=== PATIENT | male | born 1935 | race Caucasian/White ===

== ENCOUNTER 2019-10-11 08:15 | Outpatient (CLI) | payer MEDICARE, SELFPAY ==
[2019-10-11 08:36] LABS: Basophils Absolute Auto 0.1 K/mm3 (0.0-0.1); Basophils Percent Auto 0.7 % (0.2-1.2); Eosinophils Absolute Auto 0.6 K/mm3 (0-0.3); Eosinophils Percent Auto 5.5 % (0-4.4); Hematocrit 44.5 % (42.0-52.0); Hemoglobin 14.5 g/dL (14.0-18.0); Immature Granulocyte Absolute 0.04 K/mm3 (0.00-0.031); Immature Granulocyte Percent A 0.4 % (0-0.5); Lymphocytes Percent Auto 18.1 % (18.3-44.2); Mean Corpuscular HGB Conc 32.6 g/dl (32-36); Mean Corpuscular Hemoglobin 29.6 pg (26-34); Mean Corpuscular Volume 90.8 fl (80-100); Mean Platelet Volume 10.8 fl (7.4-10.4); Monocytes Absolute Auto 0.7 K/mm3 (0.1-0.6); Monocytes Percent Auto 6.8 % (2.6-8.5); Neutrophils Absolute Auto 6.8 K/mm3 (1.3-6.7); Neutrophils Percent Auto 68.5 % (45.5-73.1); Platelet Count Result 207 k/mm3 (150-375); Red Cell Distribution Width 13.5 % (11.5-14.5)
[2019-10-11 08:38] LABS: Blood Urea Nitrogen 26 mg/dL (8-26); Carbon Dioxide 22 mmol/L (22-30); Chloride 109 mmol/L (98-109); Estimated Glomerular Filt Rate 42; Glucose 150 mg/dL (70-105); Potassium 5.1 mmol/L (3.5-4.9); Sodium 139 mmol/L (138-146)
[2019-10-11 10:45] LABS: Alanine Aminotransferase 21 U/L (4-50); Albumin Level 3.9 g/dL (3.5-5.1); Alkaline Phosphatase 88 U/L (38-126); Aspartate Amino Transferase 27 U/L (17-59); Bilirubin,Total 0.3 mg/dL (0.2-1.3); Blood Urea Nitrogen 27 mg/dL (9-20); Calcium 9.9 mg/dL (8.4-10.2); Carbon Dioxide 19 mmol/L (22-30); Chloride 106 mmol/L (98-107); Estimated Glomerular Filt Rate 49; Glucose 147 mg/dL (75-110); Potassium 5.3 mmol/L (3.4-5.0); Sodium 138 mmol/L (137-145)
== END 2019-10-11 08:16 | disposition home or self-care (01) ==
PROVIDERS: PCP Internal Medicine Hematology & Oncology; Visit Provider Internal Medicine Hematology & Oncology
DX: C64.2 Malignant neoplasm of left kidney, except renal pelvis (principal)
CPT/HCPCS: 36415; 80048; 80053; 85025

== ENCOUNTER 2019-10-17 10:14 | Outpatient (CLI) | payer MEDICARE, SELFPAY ==
--- NOTE | ~2019-10-17 | MR_ITS ---
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 TECHNIQUE: Magnetic resonance imaging (MRI) of the cervical spine was performed without and with 15 m L MultiHance intravenous contrast. Sequences included sagittal and axial T2-weighted FSE, sagittal ST IR FSE, and sagittal and axial T1-weighted FSE. Postcontrast sequences included sagittal and axial T1 -weighted FS FSE. COMPARISON: Cervical spine MRI 05/16/2019, 02/14/2019, chest CT 09/26/2019 FINDINGS: Bone alignment is normal. There is bone marrow replacement involving C2 and C3 vertebral keya dies with expansion of C2 vertebral body with mild central canal stenosis. There is severely decrease d disc height at C2-C3 and mildly decreased disc height at C5-C6 and C6-C7. There is posterior decomp ression from the skull base to C3. There are lateral mass screws in C3, C4, and C5. The spinal cord s ignal intensity is normal. The following disc levels are specifically discussed: C2-C3: The disc is bulging. There is at least mild bilateral neural foraminal stenosis. There is mild central canal stenosis. C3-C4: The disc is bulging. There is mild bilateral uncovertebral joint osteoarthritis. There is mild bilateral facet joint hypertrophy. There is mild bilateral neural foraminal stenosis. There is mild central canal stenosis. C4-C5: The disc is bulging. There is moderate bilateral uncovertebral joint osteoarthritis. There is moderate bilateral facet joint hypertrophy. There is moderate bilateral neural foraminal stenosis. Th ere is mild central canal stenosis. C5-C6: The disc is bulging. There is severe right and moderate left uncovertebral joint osteoarthriti s. There is mild bilateral facet joint hypertrophy. There is moderate bilateral neural foraminal sten osis. There is mild central canal stenosis. C6-C7: The disc is bulging. There is severe bilateral uncovertebral joint osteoarthritis. There is mi ld bilateral facet joint osteoarthritis. There is moderate right and mild left neural foraminal steno sis. There is mild central canal stenosis. C7-T1: The disc is bulging. There is mild bilateral uncovertebral joint osteoarthritis. There is mild right and moderate left facet joint osteoarthritis. There is mild bilateral neural foraminal stenosi s. There is mild central canal stenosis. IMPRESSION: 1. Bone marrow replacement involving C2 and C3 vertebral bodies, stable from 02/14/2019, consistent wi th metastatic disease. 2. Moderate cervical spondylosis. Reviewed, dictated and finalized at location A. DENT RESPONSE CONSULTANT IMPRESSION: 1. Bone marrow replacement involving C2 and C3 vertebral bodies, stable from 07/2019, consistent with metastatic disease. 2. Moderate cervical spondylosis.
[2019-10-17 11:29] LABS: Blood Urea Nitrogen 22 mg/dL (8-26); Estimated Glomerular Filt Rate 49
== END 2019-10-17 10:15 | disposition home or self-care (01) ==
PROVIDERS: Visit Provider Internal Medicine Hematology & Oncology
DX: C64.2 Malignant neoplasm of left kidney, except renal pelvis (principal); C79.51 Secondary malignant neoplasm of bone; M47.812 Spondylosis without myelopathy or radiculopathy, cervical region
CPT/HCPCS: 72156; A9577

== ENCOUNTER 2019-11-23 08:55 | Outpatient (CLI) | payer MEDICARE, SELFPAY ==
--- NOTE | ~2019-11-23 | PE_ITS ---
EXAMINATION: PET skull to mid thigh DATE: 11/23/2019 12:53 INDICATION: Malignant neoplasm of the kidney, abnormal bilateral hilar lymph nodes on recent CT and s uspected cervical spine metastatic disease on recent MR. TECHNIQUE: Blood glucose level was 78 mg/dL. 9.797 mCi of 18-fluorodeoxyglucose (18-FDG) was administ ered i.v. Low dose computed tomography (CT) images were acquired from the base of the brain to the pr oximal thighs for attenuation correction and anatomic localization. Positron emission tomography (PET ) images were acquired in the same distribution beginning 62 minutes after injection. COMPARISON: 09/26/2019, 10/17/2019 FINDINGS: Head/neck: FDG uptake in the glottis without suspicious CT correlate is likely physiologic. There are no pathologically enlarged cervical lymph nodes. Chest: There is a 1.7 x 1.1 cm right supraclavicular lymph node with mild FDG uptake an SUV max of 2. 3. There is an approximately 2.3 x 1.5 cm left hilar lymph node with abnormal FDG uptake and SUV max of 4.1. The right hilar lymph node described on recent CT scan demonstrates mild FDG uptake but is be low size threshold for accurate uptake assessment. The heart size is normal. There is mild dependent atelectasis. Calcified mediastinal lymph nodes are consistent with old granulomatous disease. There i s no pneumothorax. Abdomen/pelvis/proximal thighs: Physiologic FDG activity is present in the bowel and urinary tract. N o abnormal FDG uptake is identified. The left kidney is surgically absent. Stones are present in the nondistended gallbladder. The liver, spleen, pancreas, and right adrenal gland are normal. The right kidney is unremarkable. No pathologically enlarged abdominal or pelvic lymph nodes are identified. Th ere is no free intraperitoneal gas or evidence of bowel obstruction. There are bilateral fat-containi ng inguinal hernias. Fat extends into the hemiscrotum on the right. Musculoskeletal: Again noted are lytic lesions involving the C2 and C3 vertebral bodies with associat ed abnormal FDG uptake and SUV max of 4.1. There are changes of occipitocervical fusion. IMPRESSION: 1. Left hilar and right supraclavicular lymphadenopathy with mild FDG uptake, consistent with metasta tic disease. Previously described right hilar lymph node demonstrates mild uptake but is likely below size threshold for accurate FDG uptake assessment. 2. Lytic lesions of the C2 and C3 vertebral bodies, consistent with metastatic disease. Reviewed, dictated and finalized at location A. IMPRESSION: 1. Left hilar and right supraclavicular lymphadenopathy with mild FDG uptake, c onsistent with metastatic disease. Previously described right hilar lymph node demonstrates mild uptake but is likely below size threshold for accurate FDG up take assessment. 2. Lytic lesions of the C2 and C3 vertebral bodies, consistent with metastatic disease.
[2019-11-23 09:35] LABS: Glucose Point of Care 78 (65-105)
== END 2019-11-23 08:56 | disposition home or self-care (01) ==
LOC: ANHIMG 09:01
PROVIDERS: Visit Provider Radiology Radiation Oncology
DX: C64.2 Malignant neoplasm of left kidney, except renal pelvis (principal); R59.0 Localized enlarged lymph nodes; M89.9 Disorder of bone, unspecified
CPT/HCPCS: 78815; A9552

== ENCOUNTER 2019-12-14 11:19 | Outpatient (CLI) | payer MEDICARE, SELFPAY ==
[2019-12-14 11:35] LABS: Basophils Absolute Auto 0.1 K/mm3 (0.0-0.1); Basophils Percent Auto 0.9 % (0.2-1.2); Eosinophils Absolute Auto 0.5 K/mm3 (0-0.3); Eosinophils Percent Auto 6.5 % (0-4.4); Hematocrit 42.7 % (42.0-52.0); Hemoglobin 13.4 g/dL (14.0-18.0); Immature Granulocyte Absolute 0.06 K/mm3 (0.00-0.031); Immature Granulocyte Percent A 0.7 % (0-0.5); Lymphocytes Absolute Auto 1.68 K/mm3 (0.9-3.2); Lymphocytes Percent Auto 20.7 % (18.3-44.2); Mean Corpuscular HGB Conc 31.4 g/dl (32-36); Mean Corpuscular Hemoglobin 29.9 pg (26-34); Mean Corpuscular Volume 95.3 fl (80-100); Mean Platelet Volume 10.8 fl (7.4-10.4); Monocytes Absolute Auto 0.7 K/mm3 (0.1-0.6); Monocytes Percent Auto 8.3 % (2.6-8.5); Neutrophils Absolute Auto 5.1 K/mm3 (1.3-6.7); Neutrophils Percent Auto 62.9 % (45.5-73.1); Platelet Count Result 200 k/mm3 (150-375); Red Blood Count 4.48 M/mm3 (4.6-6.20); Red Cell Distribution Width 13.3 % (11.5-14.5); White Blood Count 8.1 K/mm3 (4.5-10.0)
[2019-12-14 11:38] LABS: Blood Urea Nitrogen 40 mg/dL (8-26); Carbon Dioxide 20 mmol/L (22-30); Chloride 111 mmol/L (98-109); Estimated Glomerular Filt Rate 42; Glucose 120 mg/dL (70-105); Potassium 5.4 mmol/L (3.5-4.9); Sodium 139 mmol/L (138-146)
[2019-12-14 12:19] LABS: Alanine Aminotransferase 19 U/L (4-50); Albumin Level 3.9 g/dL (3.5-5.1); Alkaline Phosphatase 80 U/L (38-126); Aspartate Amino Transferase 26 U/L (17-59); Bilirubin,Total 0.3 mg/dL (0.2-1.3); Blood Urea Nitrogen 42 mg/dL (9-20); Calcium 9.7 mg/dL (8.4-10.2); Carbon Dioxide 20 mmol/L (22-30); Chloride 109 mmol/L (98-107); Estimated Glomerular Filt Rate 42; Glucose 112 mg/dL (75-110); Potassium 5.7 mmol/L (3.4-5.0); Sodium 137 mmol/L (137-145)
== END 2019-12-14 11:20 | disposition home or self-care (01) ==
LOC: ANHLAB 11:21
PROVIDERS: Visit Provider Internal Medicine Hematology & Oncology
DX: C64.2 Malignant neoplasm of left kidney, except renal pelvis (principal)
CPT/HCPCS: 36415; 80048; 80053; 85025

== ENCOUNTER 2020-02-05 10:08 | Outpatient (CLI) | payer MEDICARE, SELFPAY ==
--- NOTE | ~2020-02-05 | MR_ITS ---
EXAMINATION: MR cervical spine wo con DATE: 02/05/2020 12:23 INDICATION: Malignant neoplasm of the left kidney excluding renal pelvis. Neck pain. TECHNIQUE: Magnetic resonance imaging (MRI) of the cervical spine was performed without intravenous c ontrast due to decreased kidney function. Sequences included sagittal T2-weighted FSE, sagittal STIR FSE, sagittal T1-weighted FSE, axial MERGE, and axial T2-weighted FSE. COMPARISON: Cervical spine MRI 10/17/2019, 02/14/19 FINDINGS: Bone alignment is normal. There is bone marrow replacement involving C2 and C3 vertebral keya dies with expansion of C2 vertebral body with mild central canal stenosis. There is severely decrease d disc height at C2-C3 and mildly decreased disc height at C5-C6 and C6-C7. There is posterior decomp ression from the skull base to C3. There are lateral mass screws in C3, C4, and C5. The spinal cord s ignal intensity is normal. The following disc levels are specifically discussed: C2-C3: The disc is bulging. There is at least mild bilateral neural foraminal stenosis. There is mild central canal stenosis. C3-C4: The disc is bulging. There is mild bilateral uncovertebral joint osteoarthritis. There is mild bilateral facet joint hypertrophy. There is mild bilateral neural foraminal stenosis. There is mild central canal stenosis. C4-C5: The disc is bulging. There is moderate bilateral uncovertebral joint osteoarthritis. There is moderate bilateral facet joint hypertrophy. There is moderate bilateral neural foraminal stenosis. Th ere is mild central canal stenosis. C5-C6: The disc is bulging. There is severe right and moderate left uncovertebral joint osteoarthritis. There is mild bilateral facet joint hypertrophy. There is moderate right and mild lef t neural foraminal stenosis. There is mild central canal stenosis. C6-C7: The disc is bulging. There is severe bilateral uncovertebral joint osteoarthritis. There is mi ld bilateral facet joint osteoarthritis. There is moderate right and mild left neural foraminal steno sis. There is mild central canal stenosis. C7-T1: The disc is bulging. There is mild bilateral uncovertebral joint osteoarthritis. There is mild right and moderate left facet joint osteoarthritis. There is mild bilateral neural foraminal stenosi s. There is mild central canal stenosis. IMPRESSION: 1. Bone marrow replacement involving C2 and C3 vertebral bodies, stable from 02/14/2019, consistent wi th metastatic disease. 2. Moderate cervical spondylosis. Reviewed, dictated and finalized at location A. IMPRESSION: 1. Bone marrow replacement involving C2 and C3 vertebral bodies, stable from 07/2019, consistent with metastatic disease. 2. Moderate cervical spondylosis.
--- NOTE | ~2020-02-05 | CT_ITS ---
EXAMINATION: CT chest abdomen pelvis w con EXAM DATE: 02/05/2020 12:31 INDICATION: Malignant neoplasm left kidney. TECHNIQUE: Spiral CT of the chest, abdomen and pelvis was performed following intravenous injection o f 100 mL Omnipaque 350. Axial, coronal and sagittal images were reviewed. Coronal maximum intensity pixel images of chest reviewed. The dose-length product (DLP) for this examination was 1343.64 mGy- cm. The exposure was tailored according to patient size (auto mA exposure control), and iterative re construction (ASIR) was used as additional dose reduction technique. Comparison is made to prior exam ination from 09/26/2019. FINDINGS: CHEST: Interval improvement in previously seen scattered regions of right basilar tree-in-bud airspa ce disease, probably postinfectious residua. Linear left basilar atelectasis. There are no pleural o r pericardial effusions. Tracheobronchial tree is patent. Several enhancing left hilar lymph node s, conglomerate of both measuring 1.8 x 2.6 cm, appearance disease not significantly changed. Smaller but heterogeneously enhancing mediastinal, right hilar lymph nodes. There is no pneumothorax. Hear t normal in size. No evidence of coronary arterial calcification. ABDOMEN PELVIS: There is an 8 mm nodule in the right adrenal gland, indeterminate. The liver, spleen , and pancreas are unremarkable. There are gallstones within an otherwise unremarkable gallbladder. No evidence of obstructive biliary disease. Status post left-sided nephrectomy. There is mild prost atomegaly. The bladder is unremarkable. There is no retroperitoneal or pelvic lymphadenopathy. Th ere is mild scattered arteriosclerotic disease. Small to moderate right, small left inguinal fat-cont aining hernias. Small supraumbilical fat-containing hernias. The appendix is normal. There is small sliding gastroesophageal hiatal hernia. There is expected am ount of colonic stool. There is rather extensive colonic diverticulosis. There is no adjacent inflam matory change to suggest diverticulitis. There are no osteoblastic or osteolytic lesions identified. Patient has diffuse idiopathic skeletal hyperostosis (DISH). IMPRESSION: 1. Stable mediastinal, bilateral hilar heterogeneous metastatic lymphadenopathy. 2. Improvement in right basilar tree-in-bud opacities, post infectious residua. 3. Small right adrenal nodule, indeterminate. 4. Colonic diverticulosis. 5. Prostatomegaly. 6. Fat-containing hernias. Reviewed, dictated and finalized at location A. IMPRESSION: 1. Stable mediastinal, bilateral hilar heterogeneous metastatic lymphadenopath y. 2. Improvement in right basilar tree-in-bud opacities, post infectious residua . 3. Small right adrenal nodule, indeterminate. 4. Colonic diverticulosis. 5. Prostatomegaly. 6. Fat-containing hernias.
[2020-02-05 11:18] LABS: Estimated Glomerular Filt Rate 36
== END 2020-02-05 10:09 | disposition home or self-care (01) ==
PROVIDERS: Visit Provider Internal Medicine Hematology & Oncology
DX: C64.2 Malignant neoplasm of left kidney, except renal pelvis (principal); M47.892 Other spondylosis, cervical region; K57.30 Diverticulosis of large intestine without perforation or abscess without bleeding; N40.0 Benign prostatic hyperplasia without lower urinary tract symptoms; K44.9 Diaphragmatic hernia without obstruction or gangrene
CPT/HCPCS: 36415; 71260; 72141; 74177; Q9967

== ENCOUNTER 2020-02-08 07:39 | Emergency (ER) | payer MEDICARE, SELFPAY ==
--- NOTE | ~2020-02-08 | CT_ITS ---
EXAMINATION: CT brain wo con DATE: 02/08/2020 08:04 INDICATION: Head injury. TECHNIQUE: Computed tomography (CT) of the head was performed without intravenous contrast. The mA wa s adjusted according to patient size. Iterative reconstruction technique was employed. The dose-lengt h product was 605.33 mGy-cm. COMPARISON: PET CT 11/23/2019 FINDINGS: There is chronic encephalomalacia in right parietal occipital region with dystrophic calcif ications. There is a small focus of cystic encephalomalacia in the left parietal lobe deep white willis er. There is no intracranial hemorrhage, acute infarction, or abnormal intracranial mass lesion. The ventricles are normal in size. There are chronic dystrophic calcifications of the anterior falx. Ther e is mild mucosal thickening in the ethmoid sinuses. The mastoid air cells are normal. The orbits are normal. There are changes of fusion procedure involving the skull base and posterior cervical spine. IMPRESSION: 1. 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 Reviewed, dictated and finalized at location A. IMPRESSION: 1. Chronic encephalomalacia in right parietal-occipital region and left parieta l lobe.
--- NOTE | ~2020-02-08 | CT_ITS ---
EXAMINATION: CT cervical spine wo con DATE: 02/08/2020 08:04 INDICATION: Head injury. TECHNIQUE: Computed tomography (CT) of the cervical spine was performed without intravenous contrast. Automated exposure control and iterative reconstruction technique were employed. The dose-length pro duct was 406.35 mGy-cm. COMPARISON: Cervical spine MRI 02/05/2020 FINDINGS: Bone alignment is normal. There is an aggressive lytic lesion involving C2 and C3 vertebral bodies and posterior elements with expansion of C2 body with mild central canal stenosis. There are changes of posterior fusion procedure from the skull base to C5 with pedicle screws in C3-C5. There i s a strut graft between the skull base and C4 spinous process. There is moderately decreased disc hei ght at C5-C6 and C6-C7. The following disc levels are specifically discussed: C2-C3: There is mild left facet joint hypertrophy. There is no osseous neural foraminal stenosis. The re is no central canal stenosis. C3-C4: There is mild bilateral uncovertebral joint osteoarthritis. There is mild left facet joint hyp ertrophy. There is mild left neural foraminal stenosis. There is mild central canal stenosis. C4-C5: There is mild right and severe left uncovertebral joint osteoarthritis. There is mild right an d moderate left facet joint hypertrophy. There is mild right and moderate left neural foraminal steno sis. There is mild central canal stenosis. C5-C6: There is severe bilateral uncovertebral joint osteoarthritis. There is mild bilateral facet courtney int hypertrophy. There is moderate bilateral neural foraminal stenosis. There is mild central canal s tenosis. C6-C7: There is severe bilateral uncovertebral joint osteoarthritis. There is mild bilateral facet courtney int osteoarthritis. There is moderate right and mild left neural foraminal stenosis. There is mild ce ntral canal stenosis. C7-T1: There is severe right and mild left uncovertebral joint osteoarthritis. There is severe bilate ral facet joint osteoarthritis. There is mild bilateral neural foraminal stenosis. There is mild cent ral canal stenosis. IMPRESSION: 1. No acute fracture. 2. Aggressive lytic lesion involving C2 and C3, consistent with metastatic disease. 3. Moderate cervical spondylosis. 4. Posterior fusion procedure from the skull base to C5. Reviewed, dictated and finalized at location A. IMPRESSION: 1. No acute fracture. 2. Aggressive lytic lesion involving C2 and C3, consistent with metastatic dise ase. 3. Moderate cervical spondylosis. 4. Posterior fusion procedure from the skull base to C5.
--- NOTE | 2020-02-08 07:48 | ECG_ITS ---
Measurements Intervals Plush Rate: 70 P: 47 DE: 217 QRS: 29 QRSD: 96 T: 26 QT: 354 QTc: 384 Interpretive Statements SINUS RHYTHM WITH FIRST DEGREE AV BLOCK MINIMAL Q WAVES- INFERIOR LEADS NONSPEFIC ST ELEVATION IN DIFFUSE LEADS- PROBABLY EARLY REPOLARIZATION ABNORMAL ECG Electronically Signed On 02-08-2020 8:37:47 CDT by Keon Soni D.O.
--- NOTE | 2020-02-08 07:52 | ED.FALL ---
HPI - Fall General Chief Complaint: Fall Stated Complaint: Fall Time Seen by Provider: 02/08/20 07:48 History of Present Illness HPI Narrative: Unwitnessed fall this morning. Does not remember falll or circumstances around the fall. Unsure of down toime, does not believe it was very long. He c/o mild pain in the neck and left hip. Noted to have abrasion/contusion to scalp. He is on chemotherapy for a neck mass. Denies weakness, numbness, nausea, diarrhea, SOB, chest pain, heart palpitations. Related Data Home Medications Medication Instructions Recorded Confirmed allopurinol 100 mg PO DAILY 11/10/19 11/10/19 ascorbic acid (vitamin C) [C-1000] 1 g PO DAILY 11/10/19 11/10/19 ascorbic acid (vitamin C) [Vitamin 1 g PO DAILY 11/10/19 11/10/19 C] calcium carbonate-vitamin D3 1 tablet PO DAILY 11/10/19 11/10/19 [Caltrate 600 plus D] chlorthalidone 25 mg PO QMWF 11/10/19 11/10/19 cyanocobalamin (vitamin B-12) 1,000 mcg PO DAILY 11/10/19 11/10/19 denosumab [Xgeva] 120 mg SUBCUT ONCE 11/10/19 11/10/19 kiana (Zingiber officinalis) 250 mg PO DAILY 11/10/19 11/10/19 [kiana extract] kiana root-pyridoxine HCl(B6) cap PO 11/10/19 glimepiride 1 mg PO DAILY 11/10/19 02/08/20 lenvatinib 20 mg PO DAILY 11/10/19 11/10/19 lenvatinib [Lenvima] 10 mg PO DAILY 11/10/19 11/10/19 lisinopril 40 mg PO DAILY 11/10/19 02/08/20 magnesium 30 mg PO DAILY 11/10/19 11/10/19 zywlbqoj-avr-jleld-vit K-lycop 1 tablet PO DAILY 11/10/19 11/10/19 [Men's 50 Plus Multivitamin] naproxen sodium [Aleve] 220 mg PO Q12H PRN 11/10/19 11/10/19 oxycodone 5 mg PO Q4H PRN 11/10/19 11/10/19 pantoprazole 40 mg PO QAM 11/10/19 11/10/19 sildenafil 50 mg PO DAILY 11/10/19 11/10/19 turmeric root extract 500 mg PO DAILY 11/10/19 11/10/19 vitamin E 400 unit PO DAILY 11/10/19 11/10/19 Allergies Allergy/AdvReac Type Severity Reaction Status Date / Time Penicillins Allergy Mild Rash Verified 02/08/20 08:14 Review of Systems Review of Systems: All systems reviewed & are unremarkable except as noted in HPI and below Eyes: Eyes: Denies change in vision PMFSH Social History Social History Gender identity (if verbalized by the patient): Male Exam Const: General: no acute distress and alert Nutritional Appearance: well nourished Orientation/consciousness: patient oriented x3 HENMT: Other: swelling and abrasion of posterior scalp Eyes: Conjunctivae: conjunctivae normal Pupils: Equal, round and reactive pupils present EOM: EOMs intact bilaterally Neck: Neck: normal visual inspection Chest: Chest palpation & inspection: normal inspection of the chest Resp: Effort & Inspection: normal respiratory effort Auscultation: clear to auscultation bilaterally Cardio: Rate: regular rate Rhythm: regular rhythm Back/Spine/Pelvis: Other: mid line cervical tenderness Skin: General skin exam: normal color Neuro: General: patient oriented x3, moves all extremities and CN's II-XI intact bilaterally Cranial nerves: Yes Nystagmus not present Speech: normal speech Extrem: Other: No pain with ROM in left hip Course Vital Signs Vital signs: Vital Signs Temperature 36.8 C 02/08/20 07:57 Pulse Rate 79 02/08/20 07:57 Respiratory Rate 18 02/08/20 07:57 Blood Pressure 200/83 H 02/08/20 07:57 Pulse Oximetry 98 02/08/20 07:57 Temperature 36.8 C 02/08/20 07:57 Pulse Rate 98 02/08/20 11:46 Respiratory Rate 20 02/08/20 11:46 Blood Pressure 161/66 H 02/08/20 11:46 Pulse Oximetry 98 02/08/20 11:46 MDM - Fall MDM Narrative Medical decision making narrative: On initial assesment he did not recal the fall and seemed to be somewhat slow. I was planning to admit for suspected syncope. On reassessment he now remembers the fall. He was walking without his coleman and missed the last step. His confirms the story and says that he seems to have returned to baseline. I still offered admission
[2020-02-08 07:57] VITALS: BP 200/83; PULSE 79; RESP 18; TEMP 36.8; O2SAT 98
[2020-02-08] MEDS: SODIUM CHLORIDE 0.9% IV 500 ML 999 ML IV CONT (08:12)
--- NOTE | 2020-02-08 08:18 | PC.NURSE ---
Informed pt that we are needing a urine sample.
[2020-02-08 08:42] LABS: Basophils Absolute Auto 0.1 K/mm3 (0.0-0.1); Basophils Percent Auto 0.7 % (0.2-1.2); Eosinophils Absolute Auto 0.5 K/mm3 (0-0.3); Eosinophils Percent Auto 4.7 % (0-4.4); Hematocrit 40.7 % (42.0-52.0); Immature Granulocyte Absolute 0.06 K/mm3 (0.00-0.031); Immature Granulocyte Percent A 0.6 % (0-0.5); Lymphocytes Absolute Auto 0.91 K/mm3 (0.9-3.2); Lymphocytes Percent Auto 8.7 % (18.3-44.2); Mean Corpuscular HGB Conc 31.9 g/dl (32-36); Mean Corpuscular Hemoglobin 30.4 pg (26-34); Mean Corpuscular Volume 95.1 fl (80-100); Mean Platelet Volume 10.7 fl (7.4-10.4); Monocytes Absolute Auto 0.7 K/mm3 (0.1-0.6); Neutrophils Absolute Auto 8.2 K/mm3 (1.3-6.7); Neutrophils Percent Auto 78.3 % (45.5-73.1); Platelet Count Result 186 k/mm3 (150-375); Red Blood Count 4.28 M/mm3 (4.6-6.20); Red Cell Distribution Width 13.5 % (11.5-14.5); White Blood Count 10.5 K/mm3 (4.5-10.0)
[2020-02-08 08:59] LABS: Alanine Aminotransferase 16 U/L (4-50); Alkaline Phosphatase 72 U/L (38-126); Aspartate Amino Transferase 25 U/L (17-59); Bilirubin,Total < 0.1 mg/dL (0.2-1.3); Blood Urea Nitrogen 37 mg/dL (9-20); Calcium 9.6 mg/dL (8.4-10.2); Carbon Dioxide 26 mmol/L (22-30); Chloride 105 mmol/L (98-107); Estimated CRCL calculation 25 ml/min; Estimated Glomerular Filt Rate 34; Glucose 174 mg/dL (75-110); Potassium 5.7 mmol/L (3.4-5.0); Sodium 137 mmol/L (137-145)
[2020-02-08 09:05] LABS: INR 0.9; Prothrombin Time 12.1 Seconds (11.1-14.7)
[2020-02-08 09:06] VITALS: BP 195/78; PULSE 68
[2020-02-08 09:07] LABS: Partial Thromboplastin Time 28.2 SECONDS (22.3-36.8)
[2020-02-08 09:13] VITALS: BP 197/98; BP 204/95; PULSE 79; PULSE 92
[2020-02-08 09:46] LABS: Add Urine Microscopic? YES; Appearance Urine Clear (Clear); Bilirubin Urine Negative (Negative); Blood Urine Negative (Negative); Color Urine Yellow (Yellow); Glucose Urine UA Negative (Negative); Hyaline Casts Urine 15-19 /lpf; Ketones Urine Negative (Negative); Leukocyte Esterase Ur Negative LEU/UL (Negative); Mucus Urine Rare /lpf; Nitrate Urine Negative (Negative); Protein Urine 2+ mg/dL (Negative); RBC Urine 0-2 /hpf (0-2); Specific Grav Ur 1.019 (1.001-1.035); Urobilinogen Urine Negative mg/dL (<2.0)
[2020-02-08 09:55] VITALS: BP 198/82; PULSE 85; RESP 10; O2SAT 98
[2020-02-08] MEDS: hydrALAZINE HCL 20 MG/ML VIAL 10 MG IV PUSH (11:04)
[2020-02-08] MEDS: SODIUM CHLORIDE 0.9% IV 1,000 ML 999 ML IV CONT (11:04)
[2020-02-08 11:46] VITALS: BP 161/66; PULSE 98; RESP 20; O2SAT 98
== END 2020-02-08 13:21 | disposition home or self-care (01) ==
LOC: ANHED 11:13 → ANH3MEDSUR 12:28
PROVIDERS: Emergency Provider Emergency Medicine; PCP Internal Medicine
DX: S00.03XA Contusion of scalp, initial encounter (principal); R22.1 Localized swelling, mass and lump, neck; Z79.899 Other long term (current) drug therapy; I44.0 Atrioventricular block, first degree; R94.31 Abnormal electrocardiogram [ECG] [EKG]; W10.9XXA Fall (on) (from) unspecified stairs and steps, initial encounter
CPT/HCPCS: 36415; 70450; 72125; 80053; 81001; 85025; 85610; 85730; 93005; 96361; 96374; 99284; J0360; J7030; J7040

== ENCOUNTER 2020-02-14 12:39 | Outpatient (CLI) | payer MEDICARE, SELFPAY ==
[2020-02-14 13:01] LABS: Basophils Absolute Auto 0.1 K/mm3 (0.0-0.1); Basophils Percent Auto 0.8 % (0.2-1.2); Eosinophils Absolute Auto 0.8 K/mm3 (0-0.3); Eosinophils Percent Auto 6.8 % (0-4.4); Hematocrit 42.1 % (42.0-52.0); Hemoglobin 13.2 g/dL (14.0-18.0); Immature Granulocyte Absolute 0.08 K/mm3 (0.00-0.031); Immature Granulocyte Percent A 0.7 % (0-0.5); Lymphocytes Absolute Auto 2.07 K/mm3 (0.9-3.2); Mean Corpuscular HGB Conc 31.4 g/dl (32-36); Mean Corpuscular Hemoglobin 29.7 pg (26-34); Mean Corpuscular Volume 94.6 fl (80-100); Mean Platelet Volume 10.6 fl (7.4-10.4); Monocytes Absolute Auto 0.9 K/mm3 (0.1-0.6); Monocytes Percent Auto 7.4 % (2.6-8.5); Neutrophils Absolute Auto 8.2 K/mm3 (1.3-6.7); Neutrophils Percent Auto 67.3 % (45.5-73.1); Platelet Count Result 229 k/mm3 (150-375); Red Blood Count 4.45 M/mm3 (4.6-6.20); Red Cell Distribution Width 13.3 % (11.5-14.5); White Blood Count 12.2 K/mm3 (4.5-10.0)
[2020-02-14 13:05] LABS: Blood Urea Nitrogen 28 mg/dL (8-26); Carbon Dioxide 21 mmol/L (22-30); Chloride 109 mmol/L (98-109); Estimated Glomerular Filt Rate 49; Glucose 120 mg/dL (70-105); Potassium 4.9 mmol/L (3.5-4.9); Sodium 139 mmol/L (138-146)
[2020-02-14 16:54] LABS: Alanine Aminotransferase 15 U/L (4-50); Albumin Level 3.8 g/dL (3.5-5.1); Alkaline Phosphatase 75 U/L (38-126); Aspartate Amino Transferase 22 U/L (17-59); Bilirubin,Total 0.3 mg/dL (0.2-1.3); Blood Urea Nitrogen 28 mg/dL (9-20); Calcium 9.4 mg/dL (8.4-10.2); Carbon Dioxide 22 mmol/L (22-30); Chloride 107 mmol/L (98-107); Estimated Glomerular Filt Rate 53; Glucose 117 mg/dL (75-110); Potassium 5.1 mmol/L (3.4-5.0); Sodium 138 mmol/L (137-145)
== END 2020-02-14 12:40 | disposition home or self-care (01) ==
LOC: ANHLAB 12:41
PROVIDERS: Visit Provider Internal Medicine Hematology & Oncology
DX: C64.2 Malignant neoplasm of left kidney, except renal pelvis (principal)
CPT/HCPCS: 36415; 80048; 80053; 85025

== ENCOUNTER 2020-04-10 15:35 | Outpatient (CLI) | payer MEDICARE, SELFPAY ==
[2020-04-10 15:55] LABS: Basophils Absolute Auto 0.1 K/mm3 (0.0-0.1); Basophils Percent Auto 0.9 % (0.2-1.2); Eosinophils Absolute Auto 0.6 K/mm3 (0-0.3); Eosinophils Percent Auto 7.1 % (0-4.4); Hematocrit 42.2 % (42.0-52.0); Hemoglobin 13.3 g/dL (14.0-18.0); Immature Granulocyte Absolute 0.04 K/mm3 (0.00-0.031); Immature Granulocyte Percent A 0.4 % (0-0.5); Lymphocytes Absolute Auto 1.95 K/mm3 (0.9-3.2); Lymphocytes Percent Auto 21.6 % (18.3-44.2); Mean Corpuscular HGB Conc 31.5 g/dl (32-36); Mean Corpuscular Hemoglobin 29.4 pg (26-34); Mean Corpuscular Volume 93.2 fl (80-100); Mean Platelet Volume 10.4 fl (7.4-10.4); Monocytes Absolute Auto 0.7 K/mm3 (0.1-0.6); Monocytes Percent Auto 7.2 % (2.6-8.5); Neutrophils Absolute Auto 5.7 K/mm3 (1.3-6.7); Neutrophils Percent Auto 62.8 % (45.5-73.1); Platelet Count Result 206 k/mm3 (150-375); Red Blood Count 4.53 M/mm3 (4.6-6.20); Red Cell Distribution Width 13.5 % (11.5-14.5)
[2020-04-10 15:59] LABS: Blood Urea Nitrogen 29 mg/dL (8-26); Carbon Dioxide 25 mmol/L (22-30); Chloride 104 mmol/L (98-109); Estimated Glomerular Filt Rate 45; Glucose 149 mg/dL (70-105); Potassium 5.2 mmol/L (3.5-4.9); Sodium 139 mmol/L (138-146)
[2020-04-10 16:48] LABS: Alanine Aminotransferase 19 U/L (4-50); Alkaline Phosphatase 73 U/L (38-126); Anion Gap 15.5 mmol/L (7-16); Aspartate Amino Transferase 25 U/L (17-59); Bilirubin,Total 0.3 mg/dL (0.2-1.3); Blood Urea Nitrogen 30 mg/dL (9-20); Calcium 9.7 mg/dL (8.4-10.2); Carbon Dioxide 23 mmol/L (22-30); Chloride 104 mmol/L (98-107); Estimated Glomerular Filt Rate 49; Glucose 145 mg/dL (75-110); Potassium 5.5 mmol/L (3.4-5.0); Sodium 137 mmol/L (137-145)
== END 2020-04-10 15:36 | disposition home or self-care (01) ==
LOC: ANHLAB 15:37
PROVIDERS: Visit Provider Internal Medicine Hematology & Oncology
DX: C64.2 Malignant neoplasm of left kidney, except renal pelvis (principal)
CPT/HCPCS: 36415; 80048; 80053; 85025

== ENCOUNTER 2020-06-11 09:51 | Outpatient (CLI) | payer MEDICARE, SELFPAY ==
--- NOTE | ~2020-06-11 | MR_ITS ---
EXAMINATION: MR cervical spine wo con EXAM DATE: 06/11/2020 11:29 INDICATION: Malignancy. TECHNIQUE: Multi-sequential, multiplanar MR images of the cervical spine were obtained without contra st. Axial T2, axial T2 MERGE sequence. Sagittal T1, T2, T2 fat saturation images also obtained. Com parison is made to prior examination from 02/05/2020. FINDINGS: Again there is extensive marrow replacement process consistent with malignancy involving m ost of the C2 and C3 vertebral bodies, slight progression in error replacement compared to that time. Contours of the bones are bulging suggesting some extraosseous component. No evidence of odontoid fr acture. Surgical changes at the occiput, probably suboccipital craniectomy. Screws within posterior e lements C3-5. There is mild central canal stenosis at the C6-7 level from mild disc bulge. The cervical spinal canal otherwise patent. Overall moderate cervical spondylosis was detailed on natali or study and is unchanged. IMPRESSION: Bone marrow replacement C2 and C3, slight progression compared to prior study. Cervical spinal canal remains widely patent in this location with normal cord signal. Spondylosis unchanged. Reviewed, dictated and finalized at location B.
--- NOTE | ~2020-06-11 | CT_ITS ---
EXAMINATION: CT chest w con DATE: 06/11/2020 11:46 INDICATION: Malignant neoplasm of the left kidney TECHNIQUE: Transaxial computed tomographic images of the chest were obtained after the administration of 75 cc of Omnipaque 350 intravenous contrast. The dose-length product (DLP) was 526.43 mGy-cm. Ite rative reconstruction was used. COMPARISON: 02/05/2020 FINDINGS: There is mild emphysema. Tree-in-bud nodules in the right lower lobe are not significantly changed, likely infectious or inflammatory. There is no pleural effusion or pneumothorax. A 1.9 x 1.1 cm right subpectoral lymph node just below the clavicle is stable (image 16). Bilateral hilar lympha denopathy is stable to slightly decreased. The heart size is normal. There is mild bilateral gynecoma stia. Changes of left nephrectomy are noted. Stones are present in the nondistended gallbladder. Ther e are bridging osteophytes at multiple levels in the spine, consistent with diffuse idiopathic skelet al hyperostosis (DISH). IMPRESSION: 1. Stable to slightly decreased bilateral hilar lymphadenopathy and right subpectoral lymphadenopathy , consistent with metastatic disease. Reviewed, dictated and finalized at location A. IMPRESSION: 1. Stable to slightly decreased bilateral hilar lymphadenopathy and right subpe ctoral lymphadenopathy, consistent with metastatic disease.
[2020-06-11 11:27] LABS: Estimated Glomerular Filt Rate 42
== END 2020-06-11 09:52 | disposition home or self-care (01) ==
PROVIDERS: Visit Provider Internal Medicine Hematology & Oncology
DX: C64.2 Malignant neoplasm of left kidney, except renal pelvis (principal); M47.892 Other spondylosis, cervical region
CPT/HCPCS: 71260; 72141; Q9967

== ENCOUNTER 2020-06-18 12:47 | Outpatient (CLI) | payer MEDICARE, SELFPAY ==
[2020-06-18 13:12] LABS: Basophils Absolute Auto 0.1 K/mm3 (0.0-0.1); Basophils Percent Auto 0.6 % (0.2-1.2); Eosinophils Absolute Auto 0.7 K/mm3 (0-0.3); Eosinophils Percent Auto 5.6 % (0-4.4); Hematocrit 41.4 % (42.0-52.0); Immature Granulocyte Absolute 0.08 K/mm3 (0.00-0.031); Immature Granulocyte Percent A 0.7 % (0-0.5); Lymphocytes Absolute Auto 1.98 K/mm3 (0.9-3.2); Lymphocytes Percent Auto 16.6 % (18.3-44.2); Mean Corpuscular HGB Conc 31.4 g/dl (32-36); Mean Corpuscular Hemoglobin 29.5 pg (26-34); Mean Corpuscular Volume 94.1 fl (80-100); Mean Platelet Volume 10.6 fl (7.4-10.4); Monocytes Absolute Auto 0.9 K/mm3 (0.1-0.6); Monocytes Percent Auto 7.5 % (2.6-8.5); Neutrophils Absolute Auto 8.2 K/mm3 (1.3-6.7); Platelet Count Result 217 k/mm3 (150-375); Red Cell Distribution Width 14.3 % (11.5-14.5); White Blood Count 11.9 K/mm3 (4.5-10.0)
[2020-06-18 15:26] LABS: Alanine Aminotransferase 16 U/L (4-50); Alkaline Phosphatase 77 U/L (38-126); Anion Gap 7 mmol/L (8-16); Aspartate Amino Transferase 22 U/L (17-59); Bilirubin,Total 0.3 mg/dL (0.2-1.3); Blood Urea Nitrogen 33 mg/dL (9-20); Calcium 9.8 mg/dL (8.4-10.2); Carbon Dioxide 29 mmol/L (22-30); Chloride 104 mmol/L (98-107); Estimated Glomerular Filt Rate 42; Glucose 120 mg/dL (75-110); Potassium 5.6 mmol/L (3.4-5.0); Sodium 140 mmol/L (137-145)
== END 2020-06-18 12:48 | disposition home or self-care (01) ==
PROVIDERS: Visit Provider Internal Medicine Hematology & Oncology
DX: C64.2 Malignant neoplasm of left kidney, except renal pelvis (principal)
CPT/HCPCS: 36415; 80053; 85025

== ENCOUNTER 2020-08-15 13:41 | Outpatient (CLI) | payer MEDICARE, SELFPAY ==
[2020-08-15 14:03] LABS: Basophils Absolute Auto 0.1 K/mm3 (0.0-0.1); Basophils Percent Auto 0.5 % (0.2-1.2); Eosinophils Absolute Auto 0.5 K/mm3 (0-0.3); Eosinophils Percent Auto 5.3 % (0-4.4); Hemoglobin 12.8 g/dL (14.0-18.0); Immature Granulocyte Absolute 0.04 K/mm3 (0.00-0.031); Immature Granulocyte Percent A 0.4 % (0-0.5); Lymphocytes Percent Auto 14.2 % (18.3-44.2); Mean Corpuscular HGB Conc 31.2 g/dl (32-36); Mean Corpuscular Hemoglobin 29.4 pg (26-34); Mean Platelet Volume 10.7 fl (7.4-10.4); Monocytes Absolute Auto 0.7 K/mm3 (0.1-0.6); Monocytes Percent Auto 7.3 % (2.6-8.5); Neutrophils Absolute Auto 6.6 K/mm3 (1.3-6.7); Neutrophils Percent Auto 72.3 % (45.5-73.1); Platelet Count Result 193 k/mm3 (150-375); Red Blood Count 4.36 M/mm3 (4.6-6.20); Red Cell Distribution Width 13.2 % (11.5-14.5); White Blood Count 9.1 K/mm3 (4.5-10.0)
[2020-08-15 17:15] LABS: Alanine Aminotransferase 16 U/L (4-50); Albumin Level 3.5 g/dL (3.5-5.1); Alkaline Phosphatase 87 U/L (38-126); Anion Gap 10 mmol/L (8-16); Aspartate Amino Transferase 22 U/L (17-59); Bilirubin,Total 0.4 mg/dL (0.2-1.3); Blood Urea Nitrogen 36 mg/dL (9-20); Calcium 9.8 mg/dL (8.4-10.2); Carbon Dioxide 25 mmol/L (22-30); Chloride 102 mmol/L (98-107); Estimated Glomerular Filt Rate 42; Glucose 130 mg/dL (75-110); Sodium 137 mmol/L (137-145)
[2020-08-16 09:08] LABS: Blood Urea Nitrogen 34 mg/dL (8-26); Carbon Dioxide 26 mmol/L (22-30); Chloride 103 mmol/L (98-109); Estimated Glomerular Filt Rate 36; Potassium 4.9 mmol/L (3.5-4.9); Sodium 137 mmol/L (138-146)
[2020-08-16 09:09] LABS: Glucose 127 mg/dL (70-105)
== END 2020-08-15 13:42 | disposition home or self-care (01) ==
LOC: ANHLAB 13:43
PROVIDERS: Visit Provider Internal Medicine Hematology & Oncology
DX: C64.2 Malignant neoplasm of left kidney, except renal pelvis (principal)
CPT/HCPCS: 36415; 80048; 80053; 85025

== ENCOUNTER 2020-11-07 10:41 | Outpatient (CLI) | payer MEDICARE, SELFPAY ==
--- NOTE | ~2020-11-07 | CT_ITS ---
EXAMINATION: CT chest abdomen pelvis w con EXAM DATE: 11/07/2020 11:19 INDICATION: Left kidney cancer. TECHNIQUE: Spiral CT of the chest, abdomen and pelvis was performed following intravenous injection o f 100 mL Omnipaque 350. Axial, coronal and sagittal images were reviewed. Coronal maximum intensity pixel images of chest reviewed. The dose-length product (DLP) for this examination was 1319.46 mGy- cm. The exposure was tailored according to patient size (auto mA exposure control), and iterative re construction (ASIR) was used as additional dose reduction technique. Comparison is made to prior exam ination from 07/01/2020. FINDINGS: CHEST: Some small right basilar reticulonodular opacities unchanged, probably postinfectious. There is mild emphysema. There are enhancing or mildly dense right subpectoral, mediastinal, left hilar lym ph nodes, likely treated static disease disease correlating with prior reports. Largest in the left h ilum measuring 2.0 cm. These appear unchanged. There are no pleural or pericardial effusions. Trach eobronchial tree is patent. There is no mediastinal, hilar or axillary lymphadenopathy. There is no pneumothorax. There is cardiomegaly. There is mild coronary arterial calcification, arterial sc lerosis. No central pulmonary emboli. ABDOMEN PELVIS: There is 1.1 cm right adrenal gland nodule unchanged. The liver, spleen, adrenal gla nds and pancreas are otherwise unremarkable. There are gallstones within an otherwise unremarkable g allbladder. No evidence of obstructive biliary disease. Status post left-sided nephrectomy, unremar kable surgical bed. There is no right-sided hydronephrosis or mass. There is moderate prostatomegaly. The bladder is unremarkable. There is no retroperitoneal or pelvic lymphadenopathy. There is mil d scattered arteriosclerotic disease. Small to moderate right inguinal, small left inguinal fat-conta ining hernias. Small supraumbilical fat-containing hernias. The appendix is normal. There is extensive sigmoid and descending predominant colonic diverticulosis. There is no adjacent inflammatory change to suggest diverticulitis. The stomach and small bowel are unremarkable. There is expected amount of colonic stool. No free intraperitoneal gas. There are no osteoblastic or osteolytic lesions identified. IMPRESSION: 1. Stable thoracic lymphadenopathy. 2. Extensive right basilar postinfectious residua. 3. Mild emphysema. Colonic diverticulosis. 4. Fat-containing hernias. 5. Cholelithiasis. 6. Prostatomegaly 7. Cardiomegaly. Reviewed, dictated and finalized at location A. TABLE II FARMWORKER
[2020-11-07 11:04] LABS: Estimated Glomerular Filt Rate 36
== END 2020-11-07 10:42 | disposition home or self-care (01) ==
PROVIDERS: Visit Provider Internal Medicine Hematology & Oncology
DX: C64.2 Malignant neoplasm of left kidney, except renal pelvis (principal); J43.9 Emphysema, unspecified; K57.30 Diverticulosis of large intestine without perforation or abscess without bleeding; K44.9 Diaphragmatic hernia without obstruction or gangrene; K80.20 Calculus of gallbladder without cholecystitis without obstruction; N40.0 Benign prostatic hyperplasia without lower urinary tract symptoms; I51.7 Cardiomegaly
CPT/HCPCS: 71260; 74177; Q9967

== ENCOUNTER 2020-11-14 14:01 | Outpatient (CLI) | payer MEDICARE, SELFPAY ==
[2020-11-14 14:33] LABS: Basophils Absolute Auto 0.1 K/mm3 (0.0-0.1); Basophils Percent Auto 0.6 % (0.2-1.2); Eosinophils Absolute Auto 0.6 K/mm3 (0-0.3); Eosinophils Percent Auto 5.8 % (0-4.4); Hematocrit 41.5 % (42.0-52.0); Hemoglobin 13.2 g/dL (14.0-18.0); Immature Granulocyte Absolute 0.05 K/mm3 (0.00-0.031); Immature Granulocyte Percent A 0.5 % (0-0.5); Lymphocytes Percent Auto 17.5 % (18.3-44.2); Mean Corpuscular HGB Conc 31.8 g/dl (32-36); Mean Corpuscular Hemoglobin 29.2 pg (26-34); Mean Corpuscular Volume 91.8 fl (80-100); Monocytes Absolute Auto 0.6 K/mm3 (0.1-0.6); Monocytes Percent Auto 6.1 % (2.6-8.5); Neutrophils Absolute Auto 7.1 K/mm3 (1.3-6.7); Neutrophils Percent Auto 69.5 % (45.5-73.1); Platelet Count Result 194 k/mm3 (150-375); Red Blood Count 4.52 M/mm3 (4.6-6.20); Red Cell Distribution Width 14.7 % (11.5-14.5); White Blood Count 10.3 K/mm3 (4.5-10.0)
[2020-11-14 14:39] LABS: Blood Urea Nitrogen 25 mg/dL (8-26); Carbon Dioxide 26 mmol/L (22-30); Chloride 106 mmol/L (98-109); Estimated Glomerular Filt Rate 42; Glucose 223 mg/dL (70-105); Potassium 4.7 mmol/L (3.5-4.9); Sodium 138 mmol/L (138-146)
[2020-11-14 16:37] LABS: Alanine Aminotransferase 16 U/L (4-50); Albumin Level 3.7 g/dL (3.5-5.1); Alkaline Phosphatase 83 U/L (38-126); Anion Gap 8 mmol/L (8-16); Aspartate Amino Transferase 24 U/L (17-59); Bilirubin,Total 0.2 mg/dL (0.2-1.3); Blood Urea Nitrogen 24 mg/dL (9-20); Calcium 9.6 mg/dL (8.4-10.2); Carbon Dioxide 25 mmol/L (22-30); Chloride 106 mmol/L (98-107); Estimated Glomerular Filt Rate 45; Glucose 217 mg/dL (75-110); Potassium 5.2 mmol/L (3.4-5.0); Sodium 139 mmol/L (137-145)
== END 2020-11-14 14:02 | disposition home or self-care (01) ==
LOC: ANHLAB 14:03
PROVIDERS: Visit Provider Internal Medicine Hematology & Oncology
DX: C64.2 Malignant neoplasm of left kidney, except renal pelvis (principal)
CPT/HCPCS: 36415; 80048; 80053; 85025

== ENCOUNTER 2021-02-10 12:48 | Outpatient (CLI) | payer MEDICARE, SELFPAY ==
--- NOTE | ~2021-02-10 | MR_ITS ---
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 TECHNIQUE: Magnetic resonance imaging (MRI) of the cervical spine was performed without intravenous c ontrast. Sequences included sagittal T2-weighted FSE, sagittal STIR FSE, sagittal T1-weighted FSE, ax ial MERGE, and axial T2-weighted FSE. COMPARISON: Cervical spine MRI 06/11/2020 FINDINGS: There is encephalomalacia in right cerebellum. Bone alignment is normal. There is bone karen ow replacement in C2 vertebral body and posterior elements with expansion of C2 causing mild central canal stenosis and ventral indentation of the spinal cord. There is bone marrow replacement in C3 ana tebral body. There are changes of posterior fusion procedure from the skull to C5 with lateral mass s crews in C3, C4, and C5. There is 2 mm anterolisthesis of C4 on C5. There is moderately decreased dis c height at C5-C6 and C6-C7. The spinal cord signal intensity is normal. The following disc levels ar e specifically discussed: C2-C3: There is a central extrusion. There is mild bilateral uncovertebral joint hypertrophy. There i s severe bilateral facet joint osteoarthritis. There is moderate bilateral neural foraminal stenosis. There is mild central canal stenosis. C3-C4: There is a central protrusion. There is mild bilateral uncovertebral joint osteoarthritis. The re is mild bilateral facet joint hypertrophy. There is mild bilateral neural foraminal stenosis. Ther e is no central canal stenosis. C4-C5: There is a central protrusion. There is mild bilateral uncovertebral joint osteoarthritis. The re is moderate bilateral facet joint hypertrophy. There is moderate bilateral neural foraminal stenos is. There is mild central canal stenosis. C5-C6: The disc is bulging. There is severe bilateral uncovertebral joint osteoarthritis. There is mi ld bilateral facet joint hypertrophy. There is moderate right and mild left neural foraminal stenosis . There is mild central canal stenosis. C6-C7: The disc is bulging. There is severe bilateral uncovertebral joint osteoarthritis. There is mi ld bilateral facet joint osteoarthritis. There is moderate bilateral neural foraminal stenosis. There is mild central canal stenosis with ventral indentation of the spinal cord. C7-T1: The disc is bulging. There is severe right and moderate left uncovertebral joint osteoarthriti s. There is severe bilateral facet joint osteoarthritis. There is mild bilateral neural foraminal blessing nosis. There is mild central canal stenosis. IMPRESSION: 1. Stable bone marrow replacement involving C2 and C3, consistent with metastatic disease. 2. Stable moderate cervical spondylosis. 3. Posterior fusion procedure from the skull to C5. Reviewed, dictated and finalized at location A. IMPRESSION: 1. Stable bone marrow replacement involving C2 and C3, consistent with metastat ic disease. 2. Stable moderate cervical spondylosis. 3. Posterior fusion procedure from the skull to C5.
== END 2021-02-10 12:49 | disposition home or self-care (01) ==
PROVIDERS: Visit Provider Internal Medicine Hematology & Oncology
DX: C79.51 Secondary malignant neoplasm of bone (principal); Z98.1 Arthrodesis status; M47.892 Other spondylosis, cervical region
CPT/HCPCS: 72141

== ENCOUNTER 2021-06-23 14:08 | Outpatient (CLI) | payer MEDICARE, SELFPAY ==
[2021-06-23 14:41] LABS: Basophils Absolute Auto 0.1 K/mm3 (0.0-0.1); Basophils Percent Auto 0.7 % (0.2-1.2); Eosinophils Absolute Auto 0.8 K/mm3 (0-0.3); Eosinophils Percent Auto 7.2 % (0-4.4); Hematocrit 46.3 % (42.0-52.0); Hemoglobin 14.4 g/dL (14.0-18.0); Immature Granulocyte Absolute 0.05 K/mm3 (0.00-0.031); Immature Granulocyte Percent A 0.5 % (0-0.5); Lymphocytes Absolute Auto 1.94 K/mm3 (0.9-3.2); Lymphocytes Percent Auto 18.6 % (18.3-44.2); Mean Corpuscular HGB Conc 31.1 g/dl (32-36); Mean Corpuscular Hemoglobin 30.5 pg (26-34); Mean Corpuscular Volume 98.1 fl (80-100); Mean Platelet Volume 10.8 fl (7.4-10.4); Monocytes Absolute Auto 0.7 K/mm3 (0.1-0.6); Monocytes Percent Auto 6.4 % (2.6-8.5); Neutrophils Absolute Auto 6.9 K/mm3 (1.3-6.7); Neutrophils Percent Auto 66.6 % (45.5-73.1); Platelet Count Result 216 k/mm3 (150-375); Red Blood Count 4.72 M/mm3 (4.6-6.20); Red Cell Distribution Width 14.4 % (11.5-14.5); White Blood Count 10.4 K/mm3 (4.5-10.0)
[2021-06-23 14:45] LABS: Blood Urea Nitrogen 34 mg/dL (8-26); Carbon Dioxide 22 mmol/L (22-30); Chloride 108 mmol/L (98-109); Estimated Glomerular Filt Rate 39; Glucose 202 mg/dL (70-105); Potassium 4.9 mmol/L (3.5-4.9); Sodium 140 mmol/L (138-146)
[2021-06-23 15:31] LABS: Alanine Aminotransferase 29 U/L (4-50); Albumin Level 3.8 g/dL (3.5-5.1); Alkaline Phosphatase 177 U/L (38-126); Anion Gap 8 mmol/L (8-16); Aspartate Amino Transferase 30 U/L (17-59); Bilirubin,Total 0.3 mg/dL (0.2-1.3); Blood Urea Nitrogen 34 mg/dL (9-20); Calcium 9.3 mg/dL (8.4-10.2); Carbon Dioxide 21 mmol/L (22-30); Chloride 108 mmol/L (98-107); Estimated Glomerular Filt Rate 41; Glucose 197 mg/dL (65-110); Sodium 137 mmol/L (137-145)
== END 2021-06-23 14:09 | disposition home or self-care (01) ==
LOC: ANHLAB 14:09
PROVIDERS: Visit Provider Internal Medicine Hematology & Oncology
DX: C79.51 Secondary malignant neoplasm of bone (principal)
CPT/HCPCS: 36415; 80048; 80053; 85025

== ENCOUNTER 2021-10-07 09:54 | Outpatient (CLI) | payer MEDICARE, SELFPAY ==
--- NOTE | ~2021-10-07 | MR_ITS ---
EXAMINATION: MR cervical spine wo con EXAM DATE: 10/07/2021 11:06 INDICATION: Metastatic renal cell cancer. TECHNIQUE: Multi-sequential, multiplanar MR images of the cervical spine were obtained without contra st. Axial T2, axial T2 MERGE sequence. Sagittal T1, T2, T2 fat saturation images also obtained. Com parison is made to prior examination from 02/10/2021. FINDINGS: Again there is osseous metastatic disease of the odontoid process, C2 vertebral body and p osterior elements, C3 vertebral body and posterior elements. The odontoid process metastatic disease bulges its cortex posteriorly, but stable compared to prior study. This is indenting the anterior asp ect of the upper cervical cord, only causing mild central canal stenosis and there is no cord edema. There appears to been posterior decompression C2 level. Cervical fusion base-C5. Overall moderate cer vical spondylosis previously reported appears, not significantly changed. There is right cerebellar e ncephalomalacia. IMPRESSION: 1. Stable C2, C3 metastatic disease. 2. Surgical changes, moderate spondylosis. Reviewed, dictated and finalized at location G. UCTION CONTROL TECHNOLOGIST
--- NOTE | ~2021-10-07 | CT_ITS ---
EXAMINATION: CT diagnostic chest w con EXAM DATE: 10/07/2021 11:27 INDICATION: Metastatic Renal Cell Carcinoma. TECHNIQUE: Spiral CT of the chest following intravenous injection of 75 mL Omnipaque 350. Axial, cor onal and sagittal images of the chest were reviewed. Coronal maximum intensity pixel images of chest reviewed. The dose-length product (DLP) for this examination was 392.84 mGy-cm. The exposure was t ailored according to patient size (auto mA exposure control), and iterative reconstruction (ASIR) was used as additional dose reduction technique. Comparison is made to prior examination from 11/07/2020. FINDINGS: No central pulmonary emboli. Previously seen hilar lymphadenopathy is lower in density than on previous examination, identified bilaterally but larger on the left at 1.6 x 1.5 cm (previously u p to 2 cm). This is the largest lymph node identified. Previously seen right-sided supraclavicular/del rio bpectoral lymph nodes also have less avid enhancement and are less well visualized. Some small right basilar reticulonodular opacities unchanged, probably postinfectious. There is mild emphysema. There are no pleural or pericardial effusions. Tracheobronchial tree is patent. There is no mediastinal, hilar or axillary lymphadenopathy. There is no pneumothorax. There is cardiomegal y. There is mild coronary arterial calcification, arterial sclerosis. No central pulmonary emboli. Patient has diffuse idiopathic skeletal hyperostosis (DISH). There are no osteoblastic or osteolytic lesions identified. There is cholelithiasis. Surgical changes from left nephrectomy. IMPRESSION: Improvement in mediastinal, hilar, right subpectoral lymphadenopathy. Reviewed, dictated and finalized at location G. ENT ALTERATION EXAMINER IMPRESSION: Improvement in mediastinal, hilar, right subpectoral lymphadenopat hy.
[2021-10-07 11:14] LABS: Estimated Glomerular Filt Rate 34
== END 2021-10-07 09:55 | disposition home or self-care (01) ==
LOC: ANHIMG 10:00
PROVIDERS: PCP Internal Medicine; Visit Provider Internal Medicine Hematology & Oncology
DX: C64.9 Malignant neoplasm of unspecified kidney, except renal pelvis (principal); R59.0 Localized enlarged lymph nodes; M47.812 Spondylosis without myelopathy or radiculopathy, cervical region; Z98.890 Other specified postprocedural states
CPT/HCPCS: 71260; 72141; Q9967

== ENCOUNTER 2021-10-14 14:24 | Outpatient (CLI) | payer MEDICARE, SELFPAY ==
[2021-10-14 14:44] LABS: Basophils Absolute Auto 0.1 K/mm3 (0.0-0.1); Basophils Percent Auto 0.7 % (0.2-1.2); Eosinophils Absolute Auto 0.7 K/mm3 (0-0.3); Eosinophils Percent Auto 7.8 % (0-4.4); Hematocrit 45.7 % (42.0-52.0); Hemoglobin 14.1 g/dL (14.0-18.0); Immature Granulocyte Absolute 0.06 K/mm3 (0.00-0.031); Immature Granulocyte Percent A 0.7 % (0-0.5); Lymphocytes Absolute Auto 1.73 K/mm3 (0.9-3.2); Lymphocytes Percent Auto 20.7 % (18.3-44.2); Mean Corpuscular HGB Conc 30.9 g/dl (32-36); Mean Corpuscular Hemoglobin 30.9 pg (26-34); Mean Corpuscular Volume 100.2 fl (80-100); Mean Platelet Volume 10.8 fl (7.4-10.4); Monocytes Absolute Auto 0.6 K/mm3 (0.1-0.6); Monocytes Percent Auto 6.7 % (2.6-8.5); Neutrophils Absolute Auto 5.3 K/mm3 (1.3-6.7); Neutrophils Percent Auto 63.4 % (45.5-73.1); Platelet Count Result 186 k/mm3 (150-375); Red Blood Count 4.56 M/mm3 (4.6-6.20); Red Cell Distribution Width 14.2 % (11.5-14.5); White Blood Count 8.4 K/mm3 (4.5-10.0)
[2021-10-14 14:49] LABS: Blood Urea Nitrogen 35 mg/dL (8-26); Carbon Dioxide 22 mmol/L (22-30); Chloride 109 mmol/L (98-109); Estimated Glomerular Filt Rate 36; Glucose 122 mg/dL (70-105); Potassium 5.4 mmol/L (3.5-4.9); Sodium 138 mmol/L (138-146)
[2021-10-14 16:39] LABS: Alanine Aminotransferase 24 U/L (4-50); Albumin Level 3.7 g/dL (3.5-5.1); Alkaline Phosphatase 131 U/L (38-126); Anion Gap 10 mmol/L (8-16); Aspartate Amino Transferase 41 U/L (17-59); Bilirubin,Total 0.3 mg/dL (0.2-1.3); Blood Urea Nitrogen 34 mg/dL (9-20); Calcium 9.5 mg/dL (8.4-10.2); Carbon Dioxide 19 mmol/L (22-30); Chloride 109 mmol/L (98-107); Estimated Glomerular Filt Rate 34; Glucose 132 mg/dL (65-110); Potassium 5.5 mmol/L (3.4-5.0); Sodium 138 mmol/L (137-145)
[2021-10-14 20:41] LABS: Hemoglobin A1C 7.6 % (<5.7)
== END 2021-10-14 14:25 | disposition home or self-care (01) ==
PROVIDERS: PCP Internal Medicine; Visit Provider Internal Medicine Hematology & Oncology
DX: C64.2 Malignant neoplasm of left kidney, except renal pelvis (principal); E11.9 Type 2 diabetes mellitus without complications
CPT/HCPCS: 36415; 80053; 83036; 85025

== ENCOUNTER 2021-12-05 16:08 | Outpatient (CLI) | payer MEDICARE, SELFPAY ==
[2021-12-05 16:38] LABS: Potassium 5.2 mmol/L (3.4-5.0)
[2021-12-05 16:57] LABS: Hemoglobin A1C 7.1 % (<5.7)
== END 2021-12-05 16:09 | disposition home or self-care (01) ==
PROVIDERS: Nurse Practitioner; PCP Internal Medicine; Visit Provider Internal Medicine
DX: E87.5 Hyperkalemia (principal); E11.9 Type 2 diabetes mellitus without complications
CPT/HCPCS: 36415; 83036; 84132

== ENCOUNTER 2022-05-02 07:54 | Emergency (ER) | payer MEDICARE, SELFPAY ==
[2022-05-02 07:49] VITALS: BP 126/65; PULSE 76; RESP 18; TEMP 36.5; O2SAT 99
[2022-05-02 08:31] LABS: Appearance Urine Clear (Clear); Bilirubin Urine Negative (Negative); Blood Urine Negative (Negative); Color Urine Yellow (Yellow); Glucose Urine UA Negative (Negative); Ketones Urine Negative (Negative); Leukocyte Esterase Ur Negative LEU/UL (Negative); Nitrate Urine Negative (Negative); Protein Urine 2+ mg/dL (Negative); Specific Grav Ur 1.015 (1.001-1.035); Urobilinogen Urine 0.2 mg/dL (<2.0); pH Urine 5.5 (5.0-9.0)
[2022-05-02 08:36] LABS: Mucus Urine Rare /lpf; RBC Urine 0-2 /hpf (0-2); Squamous Epithelial Cell Urine Rare /hpf (Few); WBC Urine 0-3 /hpf
[2022-05-02 08:37] LABS: Basophils Percent Auto 0.3 % (0.2-1.2); Eosinophils Absolute Auto 0.8 K/mm3 (0-0.3); Eosinophils Percent Auto 6.8 % (0-4.4); Hematocrit 30.7 % (42.0-52.0); Hemoglobin 9.6 g/dL (14.0-18.0); Immature Granulocyte Absolute 0.06 K/mm3 (0.00-0.031); Immature Granulocyte Percent A 0.5 % (0-0.5); Lymphocytes Absolute Auto 0.84 K/mm3 (0.9-3.2); Lymphocytes Percent Auto 7.3 % (18.3-44.2); Mean Corpuscular HGB Conc 31.3 g/dl (32-36); Mean Corpuscular Hemoglobin 28.3 pg (26-34); Mean Corpuscular Volume 90.6 fl (80-100); Mean Platelet Volume 10.2 fl (7.4-10.4); Monocytes Absolute Auto 0.8 K/mm3 (0.1-0.6); Monocytes Percent Auto 6.9 % (2.6-8.5); Neutrophils Absolute Auto 9.1 K/mm3 (1.3-6.7); Neutrophils Percent Auto 78.2 % (45.5-73.1); Platelet Count Result 232 k/mm3 (150-375); Red Blood Count 3.39 M/mm3 (4.6-6.20); White Blood Count 11.6 K/mm3 (4.5-10.0)
[2022-05-02 08:43] LABS: Add Urine Microscopic? YES
[2022-05-02 08:50] LABS: Alanine Aminotransferase 17 U/L (6-50); Albumin Level 3.1 g/dL (3.5-5.1); Alkaline Phosphatase 82 U/L (38-126); Anion Gap 7 mmol/L (8-16); Aspartate Amino Transferase 21 U/L (17-59); Bilirubin,Total 0.2 mg/dL (0.2-1.3); Blood Urea Nitrogen 33 mg/dL (9-20); Calcium 9.3 mg/dL (8.4-10.2); Carbon Dioxide 23 mmol/L (22-30); Chloride 104 mmol/L (98-107); Estimated Glomerular Filt Rate 45; Glucose 221 mg/dL (65-110); Potassium 5.1 mmol/L (3.4-5.0); Sodium 134 mmol/L (137-145)
[2022-05-02 10:03] VITALS: BP 139/57; PULSE 71; RESP 18; O2SAT 98
[2022-05-02] MEDS: FLUCONAZOLE 150 MG TABLET PO (10:41)
--- NOTE | 2022-05-02 11:08 | ED.WOUNDLAC ---
HPI - Wound/Laceration General Chief Complaint: Wound/Laceration Stated Complaint: bed sores & dark urine Time Seen by Provider: 05/02/22 07:59 History of Present Illness HPI narrative: Patient is an 86-year-old male who presents to the ER with concern of possible bedsores. Patient has had red excoriated genitals over the last couple days. Not malodorous. No fevers or chills or sweats. Patient is incontinent of urine at night and sits in his diaper. PCP wanted patient be evaluated make sure there is nothing more serious. attempts to care for patient at home. Reports he tries to make and go bathroom before bedtime but he has difficulty and then he urinates while asleep. He then sits in it. Related Data Home Medications Medication Instructions Recorded Confirmed allopurinol 100 mg tablet 100 mg PO DAILY 11/10/19 11/20/21 ascorbic acid (vitamin C) 1,000 mg 1 g PO DAILY 11/10/19 11/20/21 tablet (C-1000) calcium carbonate 600 mg-vitamin 1 tablet PO DAILY 11/10/19 11/20/21 D3 20 mcg (800 unit) chewable tablet (Caltrate 600 plus D) cyanocobalamin (vitamin B-12) 1,000 mcg PO DAILY 11/10/19 11/20/21 1,000 mcg tablet kiana root 325 mg-pyridoxine HCl cap PO 11/10/19 11/20/21 (vitamin B6) 25 mg capsule glimepiride 1 mg tablet 1 mg PO DAILY 11/10/19 11/20/21 lenvatinib 10 mg/day (10 mg x 1) 10 mg PO DAILY 11/10/19 11/20/21 capsule (Lenvima) lisinopril 40 mg tablet 40 mg PO DAILY 11/10/19 11/20/21 magnesium 30 mg tablet 30 mg PO DAILY 11/10/19 11/20/21 jcxylofalkaq-ohb-orwps acid-vit 1 tablet PO DAILY 11/10/19 11/20/21 K-lycop 400 mcg-20 mcg-370 mcg tablet (Men's 50 Plus Multivitamin) turmeric root extract 500 mg 500 mg PO DAILY 11/10/19 11/20/21 capsule vitamin E 268 mg (400 unit) capsule 400 unit PO DAILY 11/10/19 11/20/21 lenvatinib 4 mg capsule 4 mg PO DAILY 07/16/21 11/20/21 Allergies Allergy/AdvReac Type Severity Reaction Status Date / Time Penicillins Allergy Mild Rash Verified 11/20/21 14:35 Cephalosporins AdvReac Unknown elevated Verified 02/07/22 11:24 LFT's egg AdvReac Unknown Verified 11/20/21 14:35 sitagliptin AdvReac rash Verified 11/20/21 14:35 Review of Systems Review of Systems: All systems reviewed & are unremarkable except as noted in HPI and below Constitutional: Constitutional: Denies chills and Denies fever(s) Cardiovascular: Cardiovascular: Denies chest pain, Denies rapid heart rate and Denies radiating jaw, neck or arm pain Respiratory: Respiratory: Denies cough, Denies dyspnea and Denies wheezing Gastrointestinal: Gastrointestinal: Denies abdominal pain, Denies nausea and Denies vomiting Genitourinary: Genitourinary: Denies dysuria, Denies urinary frequency and Reports urinary incontinence Integumentary/Breasts: Skin/Breast: Reports pruritus, Reports erythema, Reports rash and Denies skin ulcer PMF Past Medical History Medical History (Updated 05/02/22 @ 11:10 by Eleazar Ryder MD) Abdominal pain Cold intolerance Diabetes Difficulty swallowing Drowsiness Edema Excessive thirst Hypertension Joint pain Leg pain Vision changes Surgical History Surgical History History of cervical spinal surgery History of left nephrectomy Family History Family History Mother Cervical cancer Unknown Bone cancer Pancreatic cancer Grandparent Malignant neoplasm of prostate Social History Social History Smoking packs per day: 1 Smoking cigarettes per day: 20.0 Years smoked: 30 Smoking pack-years: 30.00 Smoking status: Former smoker Smoking end date: 09/14/88 Alcohol intake: never Substance use: never Substance use type: does not use Additional occupation/education comments: Retired from [employer] Gender identity (if verbalized by the patient): Male
[2022-05-02 11:20] VITALS: BP 148/60; PULSE 70; RESP 16; O2SAT 98
== END 2022-05-02 11:30 ==
PROVIDERS: Emergency Provider Emergency Medicine; PCP Internal Medicine
DX: L22 Diaper dermatitis (principal); B37.2 Candidiasis of skin and nail; E11.9 Type 2 diabetes mellitus without complications; I10 Essential (primary) hypertension; Z90.5 Acquired absence of kidney; Z87.891 Personal history of nicotine dependence; Z79.84 Long term (current) use of oral hypoglycemic drugs
CPT/HCPCS: 36415; 80053; 81001; 85025; 99283; A9270

== ENCOUNTER 2022-06-02 01:56 | Emergency (ER) | payer MEDICARE, SELFPAY ==
--- NOTE | ~2022-06-02 | CT_ITS ---
EXAMINATION: CT cervical spine wo con DATE: 06/02/2022 02:28 INDICATION: Posterior neck pain. TECHNIQUE: Computed tomography (CT) of the cervical spine was performed without intravenous contrast. Automated exposure control and iterative reconstruction technique were employed. The dose-length pro duct was 439.78 mGy-cm. COMPARISON: CT cervical spine 02/08/2020 FINDINGS: There is an old healed fracture right clavicle. There is a 2.1 x 2.1 cm right subpectoral l ymph node. There are surgical changes in right neck. There is 7 degrees levocurvature of cervicothora cic spine. There are aggressive lytic lesions involving C1, C2, and C3. There is a chronic pathologic burst fracture of C2 with mild central canal stenosis. There is severely decreased disc height at C2 -C3, C5-C6, and C6-C7 and moderately decreased disc height at C7-T1. There are changes of posterior f usion procedure from the skull base to C5 with strut graft and plate and screws including lateral mas s screws in C3, C4, and C5. The following disc levels are specifically discussed: C3-C4: There is mild bilateral uncovertebral joint osteoarthritis. There is moderate left facet joint hypertrophy. There is mild left neural foraminal stenosis. There is tumor involvement in right neura l foramen. There is mild central canal stenosis. C4-C5: There is severe bilateral uncovertebral joint osteoarthritis. There is mild right and severe l eft facet joint hypertrophy. There is mild right and moderate left neural foraminal stenosis. There i s mild central canal stenosis. C5-C6: There is severe bilateral uncovertebral joint osteoarthritis. There is moderate facet joint os teoarthritis. There is ankylosis of left facet joint with severe hypertrophy. There is moderate bilat eral neural foraminal stenosis. There is mild central canal stenosis. C6-C7: There is severe bilateral uncovertebral joint osteoarthritis. There is mild bilateral facet courtney int osteoarthritis. There is moderate right and mild left neural foraminal stenosis. There is mild ce ntral canal stenosis. C7-T1: There is mild bilateral uncovertebral joint osteoarthritis. There is moderate right and severe left facet joint osteoarthritis. There is mild bilateral neural foraminal stenosis. There is no cent ral canal stenosis. IMPRESSION: 1. Aggressive lytic lesions involving C1, C2, and C3 without change, consistent with metastatic disea se. Right subpectoral lymphadenopathy, consistent with metastatic disease. 2. Severe cervical spondylosis. 3. Posterior fusion procedure from the skull base to C5. Reviewed, dictated and finalized at location A. IMPRESSION: 1. Aggressive lytic lesions involving C1, C2, and C3 without change, consistent with metastatic disease. Right subpectoral lymphadenopathy, consistent with me tastatic disease. 2. Severe cervical spondylosis. 3. Posterior fusion procedure from the skull base to C5.
--- NOTE | ~2022-06-02 | CT_ITS ---
EXAMINATION: CT brain wo con DATE: 06/02/2022 02:28 INDICATION: Headache. TECHNIQUE: Computed tomography (CT) of the head was performed without intravenous contrast. The mA wa s adjusted according to patient size. Iterative reconstruction technique was employed. The dose-lengt h product was 605.33 mGy-cm. COMPARISON: Head CT 02/08/2020 FINDINGS: There is chronic encephalomalacia in right temporal parietal occipital region, right thalam us, and right cerebellum. There are scattered areas of low attenuation in the left-sided cerebral whi te matter, which is within normal limits for the patient's age. There is ex vacuo dilatation of occip ital horn of right lateral ventricle. The paranasal sinuses are clear. The orbits are normal. The mas toid air cells are normal. There are changes of posterior fusion procedure from the skull base to cer vical spine. IMPRESSION: 1. Chronic encephalomalacia in right temporal parietal occipital region, right thalamus, and right ce rebellum. Reviewed, dictated and finalized at location A. IMPRESSION: 1. Chronic encephalomalacia in right temporal parietal occipital region, right thalamus, and right cerebellum.
--- NOTE | ~2022-06-02 | CT_ITS ---
EXAMINATION: CT lumbar spine wo con DATE: 06/02/2022 02:28 INDICATION: Low back pain. TECHNIQUE: Computed tomography (CT) of the lumbar spine was performed without intravenous contrast. A utomated exposure control and iterative reconstruction technique were employed. The dose-length produ ct was 1146.70 mGy-cm. COMPARISON: CT abdomen and pelvis 11/07/2020 FINDINGS: There are changes of left nephrectomy. There is 6 degrees levocurvature of lumbar spine. Th ere is 3 mm retrolisthesis of L1 on L2 and L2 on L3. Vertebral body heights are normal. There is a 3. 7 x 2.9 x 2.9 cm mass involving the L5 left posterior elements. There is moderately decreased disc he ight at L1-L2, L2-L3, and L3-L4 and mildly decreased disc height at L4-L5. The following disc levels are specifically discussed: L1-L2: The disc is bulging. There is mild bilateral facet joint osteoarthritis. There is mild bilater al neural foraminal stenosis. There is mild central canal stenosis. L2-L3: The disc is bulging. There is mild bilateral facet joint osteoarthritis. There is mild right a nd moderate left neural foraminal stenosis. There is mild central canal stenosis. L3-L4: The disc is bulging. There is severe bilateral facet joint osteoarthritis. There is moderate b ilateral neural foraminal stenosis. There is mild central canal stenosis. L4-L5: The disc is bulging. There is severe bilateral facet joint osteoarthritis. There is moderate r ight and mild left neural foraminal stenosis. There is mild central canal stenosis. L5-S1: The disc is bulging. There is severe bilateral facet joint osteoarthritis. There is mild bilat eral neural foraminal stenosis. There is mild central canal stenosis. IMPRESSION: 1. Mass involving the left L5 posterior elements with worsening from 11/07/2020, consistent with metast atic renal cell carcinoma. 2. Moderate lumbar spondylosis. Reviewed, dictated and finalized at location A. IMPRESSION: 1. Mass involving the left L5 posterior elements with worsening from 11/07/2020, consistent with metastatic renal cell carcinoma. 2. Moderate lumbar spondylosis.
[2022-06-02 02:01] VITALS: BP 199/90; PULSE 75; RESP 18; TEMP 36.4; O2SAT 100
--- NOTE | 2022-06-02 02:09 | ED.GENADULT ---
HPI - General Adult General Chief complaint: Neck Pain/Injury Stated complaint: NECK PAIN Time Seen by Provider: 06/02/22 01:59 History of Present Illness HPI narrative: 86-year-old male presenting to the emergency department for evaluation of neck pain and headache. Patient states he does have chronic intermittent neck pain and did have surgery in 2013 on his vertebrae. Patient states few hours ago he did develop some neck pain that radiated up into his head. Patient did take Tylenol and states he does feel improved. Patient states he no longer has headache and states the neck pain is down to a 5 from a 10. Patient denies any new numbness or weakness. Patient has declined any additional medications for pain control. Patient denies any recent falls or injuries. Patient does have history of renal cancer in 2006 Related Data Home Medications Medication Instructions Recorded Confirmed allopurinol 100 mg tablet 100 mg PO DAILY 11/10/19 11/20/21 ascorbic acid (vitamin C) 1,000 mg 1 g PO DAILY 11/10/19 11/20/21 tablet (C-1000) calcium carbonate 600 mg-vitamin 1 tablet PO DAILY 11/10/19 11/20/21 D3 20 mcg (800 unit) chewable tablet (Caltrate 600 plus D) cyanocobalamin (vitamin B-12) 1,000 mcg PO DAILY 11/10/19 11/20/21 1,000 mcg tablet kiana root 325 mg-pyridoxine HCl cap PO 11/10/19 11/20/21 (vitamin B6) 25 mg capsule glimepiride 1 mg tablet 1 mg PO DAILY 11/10/19 11/20/21 lenvatinib 10 mg/day (10 mg x 1) 10 mg PO DAILY 11/10/19 11/20/21 capsule (Lenvima) lisinopril 40 mg tablet 40 mg PO DAILY 11/10/19 11/20/21 magnesium 30 mg tablet 30 mg PO DAILY 11/10/19 11/20/21 milwqkdirkln-wxb-zhjik acid-vit 1 tablet PO DAILY 11/10/19 11/20/21 K-lycop 400 mcg-20 mcg-370 mcg tablet (Men's 50 Plus Multivitamin) turmeric root extract 500 mg 500 mg PO DAILY 11/10/19 11/20/21 capsule vitamin E 268 mg (400 unit) capsule 400 unit PO DAILY 11/10/19 11/20/21 lenvatinib 4 mg capsule 4 mg PO DAILY 07/16/21 11/20/21 Allergies Allergy/AdvReac Type Severity Reaction Status Date / Time Penicillins Allergy Mild Rash Verified 11/20/21 14:35 Cephalosporins AdvReac Unknown elevated Verified 02/07/22 11:24 LFT's egg AdvReac Unknown Verified 11/20/21 14:35 sitagliptin AdvReac rash Verified 11/20/21 14:35 Review of Systems Review of Systems: CONSTITUTIONAL: Denies fever, chills, or sweats. EYES: Denies visual changes, redness, or discharge. ENT: Denies rhinorrhea, congestion, sore throat, or otalgia. CARDIOVASCULAR: Denies chest pain, palpitations, or edema. RESPIRATORY: Denies cough or dyspnea. GASTROINTESTINAL: Denies abdominal pain, nausea, vomiting, or diarrhea. GENITOURINARY: Denies dysuria or hematuria. SKIN: Denies rash or itching. MUSCULOSKELETAL: Chronic back pain NEUROLOGIC: See HPI PSYCHIATRIC: Denies anxiety or depression. [facility] Past Medical History Medical History (Updated 06/02/22 @ 03:00 by Fili Maldonado MD) Abdominal pain Cold intolerance Diabetes Difficulty swallowing Drowsiness Edema Excessive thirst Hypertension Joint pain Leg pain Vision changes Surgical History Surgical History History of cervical spinal surgery History of left nephrectomy Family History Family History Mother Cervical cancer Unknown Bone cancer Pancreatic cancer Grandparent Malignant neoplasm of prostate Social History Social History Smoking packs per day: 1 Smoking cigarettes per day: 20.0 Years smoked: 30 Smoking pack-years: 30.00 Smoking status: Former smoker Smoking end date: 09/14/88 Alcohol intake: never Substance use: never Substance use type: does not use Additional occupation/education comments: Retired from [employer] Gender identity (if verbalized by the patient): Male Exam Narrative:
[2022-06-02] MEDS: HYDROcodone/acetaminophen (*CRX) 5-325 MG TABLET 1 TAB PO (04:02)
== END 2022-06-02 05:54 | disposition home or self-care (01) ==
PROVIDERS: Emergency Provider Emergency Medicine; PCP Internal Medicine
DX: M54.2 Cervicalgia (principal); R51.9 Headache, unspecified; E11.9 Type 2 diabetes mellitus without complications; I10 Essential (primary) hypertension; Z90.5 Acquired absence of kidney; Z98.1 Arthrodesis status; Z87.891 Personal history of nicotine dependence; G93.89 Other specified disorders of brain; M47.816 Spondylosis without myelopathy or radiculopathy, lumbar region; M47.812 Spondylosis without myelopathy or radiculopathy, cervical region; Z79.84 Long term (current) use of oral hypoglycemic drugs
CPT/HCPCS: 70450; 72125; 72131; 99284; A9270

== ENCOUNTER 2022-12-28 23:12 | Inpatient (IN) | payer MEDICARE, SELFPAY ==
[2022-12-28] VITALS (7 sets, daily range): BP systolic 100–112; BP diastolic 40–55; PULSE 84–90; RESP 17–21; TEMP 36.8; O2SAT 92–100
--- NOTE | ~2022-12-28 | CT_ITS ---
EXAMINATION:CT diagnostic chest wo con DATE: 12/29/2022 15:12 INDICATION: Renal cell carcinoma. TECHNIQUE: Computed tomography (CT) of the chest was performed without intravenous contrast. Automate d exposure control and iterative reconstruction technique were employed. The dose-length product (DLP ) was 578.88 mGy-cm. COMPARISON: Chest CT 10/07/2021 FINDINGS: The lung volumes are small. There is mild atelectasis bilaterally. There are small pleural effusions. Calcified right lung nodules and calcified right hilar and mediastinal lymph nodes are con sistent with old granulomatous disease. There is bilateral hilar and mediastinal lymphadenopathy. The re is a right subpectoral lymphadenopathy. For example, a 3.1 x 2.4 cm right subpectoral node previou sly measured 1.6 x 1.1 cm. The heart size is normal. There are coronary artery calcifications. There is a small pericardial effusion. There are changes of left nephrectomy. There are gallstones in the g allbladder, which is normal in size. There are bridging endplate osteophytes at multiple levels in th e spine, consistent with diffuse idiopathic skeletal hyperostosis (DISH). IMPRESSION: 1. Worsened chest lymphadenopathy, consistent with metastatic renal cell carcinoma. 2. Small pleural effusions. 3. Small pericardial effusion. Reviewed, dictated and finalized at location A. IMPRESSION: 1. Worsened chest lymphadenopathy, consistent with metastatic renal cell carcin sofy. 2. Small pleural effusions. 3. Small pericardial effusion.
--- NOTE | ~2022-12-28 | MR_ITS ---
EXAMINATION: MR cervical spine wo con DATE: 12/30/2022 11:48 INDICATION: Metastatic renal cell carcinoma. TECHNIQUE: Magnetic resonance imaging (MRI) of the cervical spine was performed without intravenous c ontrast. COMPARISON: Cervical spine MRI 10/07/2021 FINDINGS: There is chronic encephalomalacia in right cerebellum. Bone alignment is normal. There is e nlargement of C2 vertebral body with mild central canal stenosis. There is decreased T1-weighted sign al intensity in C1, C2, and C3 with worsened distribution from 10/07/2021. There is severely decreased disc height at C2-C3 and moderately decreased disc height at C5-C6 and C6-C7. There are changes of sc rew fusion procedure from the skull base to C5 with C2 and C3 laminectomies and instrumentation. Ther e is increased T2-weighted signal intensity in the spinal cord at C1, consistent with myelomalacia. T here is a 9 mm subcutaneous mass involving the right posterior neck. There is a 10 mm subcutaneous ma ss involving the left posterior superior thorax. The following disc levels are specifically discussed : C2-C3: The disc does not extend beyond the endplate margin. There is mild bilateral uncovertebral donna nt hypertrophy. There is severe bilateral facet joint osteoarthritis. The neural foramina are not wel l evaluated. There is mild central canal stenosis. C3-C4: There is a central protrusion. There is mild bilateral uncovertebral joint osteoarthritis. The re is severe right and moderate left facet joint hypertrophy. The neural foramina are not well evalua el. There is mild central canal stenosis. C4-C5: There is a central protrusion. There is moderate bilateral uncovertebral joint hypertrophy. Th ere is moderate bilateral facet joint hypertrophy. There is moderate bilateral neural foraminal steno sis. There is mild central canal stenosis. C5-C6: The disc is bulging. There is severe bilateral uncovertebral joint osteoarthritis. There is mi ld lateral facet joint hypertrophy. There is moderate right and mild left neural foraminal stenosis. There is mild central canal stenosis. C6-C7: The disc is bulging. There is severe bilateral uncovertebral joint osteoarthritis. There is mi ld bilateral facet joint osteoarthritis. There is moderate bilateral neural foraminal stenosis. There is mild central canal stenosis. C7-T1: There is a central extrusion. There is moderate bilateral uncovertebral joint osteoarthritis. There is severe bilateral facet joint osteoarthritis. There is mild bilateral neural foraminal stenos is. There is mild central canal stenosis. IMPRESSION: 1. Worsened distribution of decreased T1-weighted signal intensity and C1, C2, and C3, consistent wit h metastatic disease. 2. 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 3. Moderate cervical spondylosis. 4. Posterior fusion procedure from the skull base to C5. 6. Encephalomalacia involving the right cerebellum. 7. Subcutaneous masses in the right posterior neck and left posterior thorax, which are indeterminate for metastatic disease. Reviewed, dictated and finalized at location A. IMPRESSION: 1. Worsened distribution of decreased T1-weighted signal intensity and C1, C2, and C3, consistent with metastatic disease. 2. 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 3. Moderate cervical spondylosis. 4. Posterior fusion procedure from the skull base to C5. 6. Encephalomalacia involving the right cerebellum. 7. Subcutaneous masses in the right posterior neck and left posterior thorax, w hich are indeterminate for metastatic disease.
--- NOTE | ~2022-12-28 | XR_ITS ---
EXAMINATION: XR heel RT min 2V DATE: 12/29/2022 15:18 INDICATION: Osteomyelitis at the right heel TECHNIQUE: Lateral and axial views of the right calcaneus were obtained. COMPARISON: None. FINDINGS: Bone alignment is normal. No fracture. Joint spaces are relatively preserved. No ankle joint effusion . Moderate-sized plantar calcaneal spur and small enthesophyte at the calcaneal insertion of the Achi lles tendon. Small amount of high attenuation material projecting along the skin surface potentially with associated ulceration at the lateral aspect of the posterior heel. No evident soft tissue gas. N o underlying cortical erosion, osteolysis or periosteal reaction to suggest osteomyelitis. IMPRESSION: 1. No evident osteomyelitis. Reviewed, dictated and finalized at location A.
--- NOTE | ~2022-12-28 | XR_ITS ---
EXAMINATION: XR humerus RT DATE: 12/29/2022 02:16 INDICATION: Right humerus pain. Fall. TECHNIQUE: 2 views of right humerus were obtained. COMPARISON: None. FINDINGS: Bone alignment is normal. No fracture. There is mild osteoarthritis of glenohumeral joint a nd severe osteoarthritis of acromioclavicular joint. There is an enthesophyte at lateral humeral epic ondyle. IMPRESSION: 1. Polyarticular osteoarthritis. Reviewed, dictated and finalized at location A.
--- NOTE | ~2022-12-28 | XR_ITS ---
EXAMINATION: XR chest 1V portable DATE: 12/29/2022 02:16 INDICATION: Weakness. TECHNIQUE: A single frontal view of the chest was obtained. COMPARISON: CT abdomen and pelvis 12/29/2022 FINDINGS: There is chronic mild elevation of right hemidiaphragm. There are airspace opacities at the lung bases. There is a small left pleural effusion. No pneumothorax. The heart size is normal. There is left hilar lymphadenopathy. There are changes of posterior fusion procedure in cervical spine. Th ere are surgical clips in right neck. There are surgical clips from left nephrectomy. IMPRESSION: 1. Airspace opacities at the lung bases, likely atelectasis. 2. Small left pleural effusion. 3. Left hilar lymphadenopathy, consistent with metastatic disease. Reviewed, dictated and finalized at location A.
--- NOTE | ~2022-12-28 | CT_ITS ---
EXAMINATION: CT abdomen pelvis wo con DATE: 12/29/2022 02:04 INDICATION: Abdominal pain. Weakness. TECHNIQUE: Computed tomography (CT) of the abdomen and pelvis was performed without intravenous contr ast. Automated exposure control and iterative reconstruction technique were employed. The dose-length product was 899.07 mGy-cm. COMPARISON: CT abdomen and pelvis 11/07/2020, chest CT 10/07/2021 FINDINGS: The visualized portions of the lung bases demonstrate mild bilateral atelectasis. There is chronic mild elevation of right hemidiaphragm. A calcified right lung nodule and calcified right celso r and mediastinal lymph nodes are consistent with old granulomatous disease. There are small pleural effusions. The heart size is normal. There is a small pericardial effusion. There is mediastinal and bilateral hilar lymphadenopathy, consistent with metastatic disease. A left hilar node measures 3.3 x 3.9 cm, increased from 2.2 x 1.8 cm on 10/07/2021. The liver is normal. There are gallstones in the ga llbladder, which is normal in size. The spleen is normal. There is a 1.4 cm mass in the tail of the p ancreas, consistent with metastatic disease. There is a 1.6 cm mass in right adrenal gland with incre ase in size from 10 mm on 10/07/2021, consistent with metastatic disease. There are multiple masses in the right kidney measuring soft tissue attenuation measuring up to 2.4 cm, which may be hemorrhagic c ysts and/or metastatic disease. There are changes of left nephrectomy and adrenalectomy. The bladder is decompressed by Quevedo catheter. The prostate is moderately enlarged. There are bilateral inguinal hernias containing fat. There is diverticulosis of the colon without evidence of diverticulitis. Ther e are no dilated loops of bowel. The appendix is normal. There are no pathologically enlarged lymph n odes. There is no free intraperitoneal fluid. There are two 6 mm masses in the right retroperitoneum, consistent with metastatic disease. There is a lytic lesion involving L5 and the sacrum on the left measuring 6.4 x 4.7 cm. IMPRESSION: 1. Worsened metastatic renal cell carcinoma. Reviewed, dictated and finalized at location A.
--- NOTE | ~2022-12-28 | US_ITS ---
EXAMINATION: US renal BI DATE: 12/29/2022 15:08 INDICATION: Acute on chronic kidney disease, metastatic renal cell carcinoma TECHNIQUE: Multiple grayscale and Doppler ultrasound images of the kidneys were obtained. COMPARISON: CT from today FINDINGS: The right kidney measures 12.2 x 5.4 x 6.7 cm. There is a 3.1 x 2.8 cm mass of the mid kidn ey. The left kidney is surgically absent. There is no hydronephrosis. The bladder is normal. IMPRESSION: 1. Right kidney mass concerning for renal cell carcinoma. Reviewed, dictated and finalized at location L.
--- NOTE | 2022-12-28 23:24 | ECG_ITS ---
Measurements Intervals [place] Rate: 84 P: 55 MI: 192 QRS: 23 QRSD: 92 T: 38 QT: 336 QTc: 398 Interpretive Statements SINUS RHYTHM ST ELEVATION IN INFERIOR LEADS, CONSIDER ACUTE INFERIOR INJURY [MARKED ST ELEVATION W/O NORMALLY INFLECTED T WAVE IN II/aVF] COMPARED TO ECG 02/08/2020 08:16:33 ST ELEVATION IN INFERIOR LEADS NOTED ON EKG FROM 2019, HOWEVER, NOW ST ELEVATION IN THE INFERIOR LEADS APPEAR MORE PRONOUNCED Electronically Signed On 12-29-2022 14:08:24 CDT by Elidia Hurd M.D.
[2022-12-28 23:42] LABS: Basophils Absolute Auto 0.1 K/mm3 (0.0-0.1); Basophils Percent Auto 0.3 % (0.2-1.2); Eosinophils Absolute Auto 0.1 K/mm3 (0-0.3); Eosinophils Percent Auto 0.4 % (0-4.4); Hematocrit 33.5 % (42.0-52.0); Hemoglobin 10.3 g/dL (14.0-18.0); Immature Granulocyte Absolute 0.12 K/mm3 (0.00-0.031); Immature Granulocyte Percent A 0.6 % (0-0.5); Lymphocytes Absolute Auto 1.34 K/mm3 (0.9-3.2); Lymphocytes Percent Auto 7.1 % (18.3-44.2); Mean Corpuscular HGB Conc 30.7 g/dl (32-36); Mean Corpuscular Hemoglobin 28.7 pg (26-34); Mean Corpuscular Volume 93.3 fl (80-100); Monocytes Absolute Auto 1.5 K/mm3 (0.1-0.6); Neutrophils Absolute Auto 15.7 K/mm3 (1.3-6.7); Neutrophils Percent Auto 83.6 % (45.5-73.1); Platelet Count Result 217 k/mm3 (150-375); Red Blood Count 3.59 M/mm3 (4.6-6.20); Red Cell Distribution Width 14.1 % (11.5-14.5); White Blood Count 18.8 K/mm3 (4.5-10.0)
[2022-12-28 23:55] LABS: Alanine Aminotransferase 26 U/L (6-50); Albumin Level 3.7 g/dL (3.5-5.1); Alkaline Phosphatase 100 U/L (38-126); Anion Gap 6 mmol/L (8-16); Aspartate Amino Transferase 35 U/L (17-59); Bilirubin,Total 0.6 mg/dL (0.2-1.3); Blood Urea Nitrogen 57 mg/dL (9-20); Calcium 9.5 mg/dL (8.4-10.2); Carbon Dioxide 26 mmol/L (22-30); Chloride 104 mmol/L (98-107); Estimated CRCL calculation 20 ml/min; Estimated Glomerular Filt Rate 26; Glucose 167 mg/dL (65-110); Potassium 5.8 mmol/L (3.4-5.0); Sodium 136 mmol/L (137-145)
[2022-12-29] VITALS (34 sets, daily range): BP systolic 102–134; BP diastolic 40–66; PULSE 77–103; RESP 18–22; TEMP 36.3–37.2; O2SAT 88–98; BMI 29.1
--- NOTE | 2022-12-29 | ECHO_ITS ---
Patient Info Name: Mario Forte Age: 87 years : 1935 Gender: Male Ht: 67 in Wt: 185 lbs BSA: 2.01 m2 HR: 92 bpm BP: 109 / 49 mmHg Heart Rhythm: Sinus Rhythm Technical Quality: Fair Exam Date: 12/29/2022 4:33 PM Exam Location: [facility] Patient Status: Outpatient Admit Date: 12/29/2022 Staff Ordering Physician: David Hatch MD Director Of Corporate Communications: Padmaja Carreno RDCS Attending Provider: Tanika Johnson MD Exam Type: CA echo dop color flow w con Study Info Indications - ecg changes Complete two-dimensional, color flow and Doppler transthoracic echocardiogram is performed with contrast to opacify the left ventricle and to improve the deliniation of the left ventricle endocardial borders. Contrast/Agitated Saline Contrast/Ag. Saline: Definity Amount: 3.00 ml Administered By: Padmaja Carreno RDCS Existing IV Access: Yes IV Access Condition: patent with no signs of infiltration Summary 1. Left ventricular chamber dimension is normal. 2. Left ventricular systolic function is hyperdynamic, estimated at >70%. 3. There is moderately increased left ventricular wall thickness. 4. The left ventricular diastolic function is grade I diastolic dysfunction. 5. Left atrial chamber dimension is mildly enlarged. 6. 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 7. There is mild mitral valve regurgitation. 8. There is mild tricuspid valve regurgitation. 9. Mild pulmonary hypertension, estimated pulmonary arterial systolic pressure is 35 mmHg. 10. Increased echogenicity on the epicardial surface. 11. There is small pericardial effusion. Left Ventricle Left ventricular chamber dimension is normal. Left ventricular systolic function is hyperdynamic, estimated at >70%. There is moderately increased left ventricular wall thickness. The left ventricular diastolic function is grade I diastolic dysfunction. Right Ventricle Right ventricular chamber dimension is normal. Right ventricular systolic function is normal. Left Atria Left atrial chamber dimension is mildly enlarged. Right Atria Right atrial chamber dimension is normal. 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 Aortic Valve The aortic valve is trileaflet. There is mild aortic valve sclerosis. There is no aortic valve stenosis. There is trace aortic valve regurgitation. Pulmonic Valve The pulmonic valve is normal. There is no pulmonic valve stenosis. There is trace pulmonic regurgitation. Mitral Valve The mitral valve has normal leaflets. There is no mitral valve stenosis. There is mild mitral valve regurgitation. Tricuspid Valve The tricuspid valve leaflets are normal. There is no significant tricuspid valve stenosis. There is mild tricuspid valve regurgitation. Mild pulmonary hypertension, estimated pulmonary arterial systolic pressure is 35 mmHg. Pericardium/Pleural Increased echogenicity on the epicardial surface. There is small pericardial effusion. Inferior Vena Cava Normal inferior vena cava with >50% collapse upon inspiration consistent with elevated right atrial pressure, 10 mmHg. Aorta The aortic root size at the sinus of Valsalva is normal. Left Ventricular Outflow Tract Name Value Normal LVOT 2D LVOT Diameter 2.01 cm
--- NOTE | 2022-12-29 01:45 | ED.RECABL ---
HPI - Recheck/Abnormal Lab/Rx General Chief Complaint: Recheck/Abnormal Lab/Rx Stated Complaint: lethargy, abnormal labs Time Seen by Provider: 12/29/22 00:05 Source: patient, EMS, RN notes reviewed and old records reviewed Mode of arrival: EMS History of Present Illness HPI narrative: This is an 87 year old male with history of DM, anemia, hypertension, CKD who presents from [facility] for evaluation of abnormal labs. Nursing staff gave report that patient is lethargic with cough and congestion. Patient reports pain all over from fall 2 weeks ago. He denies shortness of breath, abdominal pain, nausea or vomiting. HE has sandoval catheter in place. Patient is poor historian and he is unsure of why he is at hospital. He is aware that he is at [place]. Labs were drawn today. It shows elevated wbc 20 with potassium 5.5 with Creatinine 2. with BUN 52. Related Data Home Medications Medication Instructions Recorded Confirmed cyanocobalamin (vitamin B-12) 500 mcg PO DAILY 11/10/19 12/29/22 1,000 mcg tablet [id number] acid-vit 1 tablet PO DAILY 11/10/19 12/29/22 K-lycop 400 mcg-20 mcg-370 mcg tablet (Men's 50 Plus Multivitamin) acetaminophen 500 mg tablet 500 mg PO Q6H PRN Mild Pain (Scale 12/29/22 12/29/22 Score 1-4) cholecalciferol (vitamin D3) 125 125 mcg PO DAILY 12/29/22 12/29/22 mcg (5,000 unit) tablet glipizide 5 mg tablet 5 mg PO DAILY 12/29/22 12/29/22 methocarbamol 500 mg tablet 500 mg PO TID 12/29/22 12/29/22 pregabalin 50 mg capsule 50 mg PO BID 12/29/22 12/29/22 Allergies Allergy/AdvReac Type Severity Reaction Status Date / Time Penicillins Allergy Mild Rash Verified 10/09/22 11:12 Cephalosporins AdvReac Unknown elevated Verified 10/09/22 11:12 LFT's egg AdvReac Unknown Verified 10/09/22 11:12 sitagliptin AdvReac rash Verified 10/09/22 11:12 Review of Systems Constitutional: Constitutional: Reports weakness Cardiovascular: Cardiovascular: Denies syncope, Denies rapid heart rate, Denies irregular heart rhythm, Denies leg edema and Denies dyspnea Respiratory: Respiratory: Reports chest congestion, Reports cough, Denies hemoptysis, Denies excessive phlegm production and Denies dyspnea Gastrointestinal: Gastrointestinal: Denies abdominal pain, Denies hematochezia, Denies diarrhea and Denies vomiting Genitourinary: Genitourinary: Denies hematuria, Denies dysuria, Denies penile discharge and Denies testicular pain Musculoskeletal: Musculoskeletal: Reports myalgias, Denies joint swelling, Denies loss of height and Denies muscle weakness Neurologic: Denies syncope, Denies focal weakness and Denies weakness PMFSH Past Medical History Medical History (Updated 12/29/22 @ 10:52 by Marie Mayorga MD) Abdominal pain Cold intolerance Diabetes Difficulty swallowing Drowsiness Edema Excessive thirst Hypertension Joint pain Leg pain Metastatic renal cell carcinoma Vision changes Surgical History Surgical History History of cervical spinal surgery History of left nephrectomy Family History Family History Mother Cervical cancer Unknown Bone cancer Pancreatic cancer Grandparent Malignant neoplasm of prostate Social History Social History Smoking packs per day: 1 Smoking cigarettes per day: 20.0 Years smoked: 30 Smoking pack-years: 30.00 Smoking status: Former smoker Tobacco type: cigarettes Smoking end date: 09/14/88 Alcohol intake: current Drinks per week: 2 Substance use: never Substance use type: does not use Lack of Transportation: No Lack of Food: Never True Current Housing: I Have Housing Concerned About Future Housing: No Difficulty Paying Gas/Electric Bills: No Difficulty Paying for Meds: No Currently Unemployed: No Education: High School Diploma/GED
[2022-12-29] MEDS: SODIUM BICARBONATE 8.4% 50 MEQ/50 ML SYRINGE IV PUSH (01:46)
[2022-12-29 02:01] LABS: Anion Gap 9 mmol/L (8-16); Blood Urea Nitrogen 57 mg/dL (9-20); Calcium 9.5 mg/dL (8.4-10.2); Carbon Dioxide 22 mmol/L (22-30); Chloride 104 mmol/L (98-107); Estimated CRCL calculation 20 ml/min; Estimated Glomerular Filt Rate 26; Glucose 164 mg/dL (65-110); Sodium 135 mmol/L (137-145)
[2022-12-29] MEDS: DEXTROSE 50% 25 GM/50 ML SYRINGE IV PUSH (02:16)
[2022-12-29] MEDS: CALCIUM GLUCONATE 1,000 MG/10 ML VIAL 1000 MG IV PUSH (02:17)
[2022-12-29] MEDS: INSULIN HUMAN REGULAR (*BKC) 100 UNITS/ML 10 UNITS IV PUSH (02:17)
[2022-12-29] MEDS: SODIUM ZIRCONIUM CYCLOSILICATE 10 GM POWD.PACK PO ×2 (02:17→09:25)
[2022-12-29 02:27] LABS: Lactic Acid Reflex 1.4 mmol/L (0.7-2.0)
[2022-12-29 02:31] LABS: Basophils Absolute Auto 0.1 K/mm3 (0.0-0.1); Basophils Percent Auto 0.3 % (0.2-1.2); Eosinophils Absolute Auto 0.1 K/mm3 (0-0.3); Eosinophils Percent Auto 0.5 % (0-4.4); Hematocrit 32.7 % (42.0-52.0); Hemoglobin 10.1 g/dL (14.0-18.0); Immature Granulocyte Absolute 0.13 K/mm3 (0.00-0.031); Immature Granulocyte Percent A 0.7 % (0-0.5); Lymphocytes Absolute Auto 1.32 K/mm3 (0.9-3.2); Lymphocytes Percent Auto 6.9 % (18.3-44.2); Mean Corpuscular HGB Conc 30.9 g/dl (32-36); Mean Corpuscular Hemoglobin 28.7 pg (26-34); Mean Corpuscular Volume 92.9 fl (80-100); Mean Platelet Volume 11.3 fl (7.4-10.4); Monocytes Absolute Auto 1.4 K/mm3 (0.1-0.6); Monocytes Percent Auto 7.5 % (2.6-8.5); Neutrophils Percent Auto 84.1 % (45.5-73.1); Platelet Count Result 211 k/mm3 (150-375); Red Blood Count 3.52 M/mm3 (4.6-6.20); Red Cell Distribution Width 14.2 % (11.5-14.5)
[2022-12-29 02:50] LABS: INR 1.3; Prothrombin Time 15.3 Seconds (11.1-14.7)
[2022-12-29 02:51] LABS: Appearance Urine Cloudy (Clear); Bilirubin Urine Negative (Negative); Blood Urine 3+ (Negative); Color Urine Yellow (Yellow); Glucose Urine UA Negative (Negative); Ketones Urine Negative (Negative); Leukocyte Esterase Ur Trace LEU/UL (Negative); Need Manual Microscopic Reviewed; Nitrate Urine Negative (Negative); Partial Thromboplastin Time 37.9 SECONDS (22.3-36.8); Protein Urine 2+ mg/dL (Negative); RBC Urine >100 /hpf (0-2); Specific Grav Ur 1.018 (1.001-1.035); Squamous Epithelial Cell Urine Occasional /hpf (Few); Urobilinogen Urine 0.2 mg/dL (<2.0); WBC Urine 0-5 /hpf
[2022-12-29 02:53] LABS: Add Urine Microscopic? YES; Bacteria Urine Trace /hpf
[2022-12-29] MEDS: SODIUM CHLORIDE 0.9% IV 500 ML 999 ML IV CONT (05:14)
[2022-12-29] MEDS: metroNIDAZOLE 500 MG/ISO 100ML 500 MG/100 ML BAG 100 MG IVPB ×3 (05:21→21:24)
--- NOTE | 2022-12-29 06:21 | ADMGEN ---
This patient, Mario Forte, was admitted to IMU Room 205-02 at 0620. Patient/family oriented to hospital policies and general routines including ID bracelet, bed and alarms, visiting hours, pain management, procedures, bathroom and other care routines, personal items, smoking policy, room service/diet, and visiting hours. Information on how to activate the Rapid Response Team has been discussed. Patient/Family are encouraged to report perceived risks to care and to ask questions if they do not understand what they are told or what they should do.
[2022-12-29] MEDS: SODIUM CHLORIDE 0.9% IV 1,000 ML 125 ML IV CONT (07:00)
[2022-12-29 08:03] LABS: Anion Gap 5 mmol/L (8-16); Blood Urea Nitrogen 56 mg/dL (9-20); Calcium 9.7 mg/dL (8.4-10.2); Carbon Dioxide 29 mmol/L (22-30); Chloride 104 mmol/L (98-107); Estimated CRCL calculation 19 ml/min; Estimated Glomerular Filt Rate 26; Glucose 149 mg/dL (65-110); Potassium 5.7 mmol/L (3.4-5.0); Sodium 138 mmol/L (137-145)
--- NOTE | 2022-12-29 09:45 | PM.IMPN ---
Subjective Date/time seen: 12/29/22 09:45 Review of Systems Review of Systems: All systems reviewed & are unremarkable except as noted in HPI and below Objective Data Vital Signs Vital Signs: Vital Signs - 24 hr 12/28/22 23:14 12/28/22 23:21 12/28/22 23:23 Temperature 98.2 F Pulse Rate 88 88 90 Respiratory Rate 18 19 21 H Blood Pressure 112/40 L 112/40 L Pulse Oximetry 94 92 94 Oxygen Delivery Room Air 12/28/22 23:24 12/28/22 23:31 12/28/22 23:45 Temperature Pulse Rate 87 84 85 Respiratory Rate 19 18 17 Blood Pressure 100/49 L 107/53 L Pulse Oximetry 100 97 Oxygen Delivery 12/28/22 23:46 12/29/22 00:00 12/29/22 00:28 Temperature Pulse Rate 85 85 88 Respiratory Rate 19 19 18 Blood Pressure 109/55 L Pulse Oximetry 98 96 Oxygen Delivery 12/29/22 00:32 12/29/22 01:00 12/29/22 01:30 Temperature Pulse Rate 86 87 84 Respiratory Rate 18 19 19 Blood Pressure Pulse Oximetry 98 Oxygen Delivery 12/29/22 01:45 12/29/22 02:13 12/29/22 02:15 Temperature Pulse Rate 87 91 90 Respiratory Rate 19 21 H 19 Blood Pressure Pulse Oximetry Oxygen Delivery 12/29/22 02:30 12/29/22 02:40 12/29/22 02:45 Temperature Pulse Rate 93 95 96 Respiratory Rate 19 19 20 Blood Pressure 115/48 L Pulse Oximetry 92 92 Oxygen Delivery 12/29/22 02:46 12/29/22 03:00 12/29/22 03:01 Temperature Pulse Rate 93 95 94 Respiratory Rate 20 19 19 Blood Pressure 122/50 L 114/53 L Pulse Oximetry 92 93 94 Oxygen Delivery 12/29/22 03:15 12/29/22 03:16 12/29/22 03:30 Temperature Pulse Rate 95 96 100 Respiratory Rate 20 19 20 Blood Pressure 120/54 L Pulse Oximetry 93 93 Oxygen Delivery 12/29/22 03:31 12/29/22 03:45 12/29/22 03:46 Temperature Pulse Rate 99 100 99 Respiratory Rate 21 H 19 22 H Blood Pressure 128/56 L 129/59 L Pulse Oximetry 94 95 Oxygen Delivery 12/29/22 06:36 12/29/22 08:38 Temperature 97.6 F 98.5 F Pulse Rate 98 97 Respiratory Rate 20 20 Blood Pressure 114/40 L 134/66 Pulse Oximetry 88 L 91 Oxygen Delivery Intake/Output Intake/Output: Intake & Output 12/26/22 12/27/22 12/28/22 12/29/22 23:59 23:59 23:59 23:59 Intake Total 600 Output Total 300 Balance 300 Meds/Results Medications: Active Medications Generic Name Dose Route Start Last Admin Trade Name Freq PRN Reason Stop Dose Admin Dextrose 12.5 gm 12/29/22 00:30 Dextrose 50% 25 Gm/50 Ml Syringe IV PUSH PRN PRN Hypoglycemia Protocol Glucagon 1 mg 12/29/22 00:30 Glucagon For Inj 1 Mg Vial IM PRN PRN Hypoglycemia Protocol Glucose 15 gm 12/29/22 00:30 Glucose Oral Gel 15 Gm Of Glucse In 37.5 Gm Tube PO PRN PRN Hypoglycemia Protocol Dextrose 1,000 mls @ 100 mls/hr 12/29/22 00:30 Dextrose 5% 1,000 Ml IVPB PRN PRN Hypoglycemia Protocol Sodium Chloride 1,000 mls @ 125 mls/hr 12/29/22 04:50 12/29/22 07:00 Normal Saline Iv IV CONT 125 mls/hr .Q8H JERI Administration Ondansetron HCl 4 mg 12/29/22 04:50 Ondansetron Inj 4 Mg/2 Ml Vial IV PUSH Q4H PRN Nausea Sodium Zirconium Cyclosilicate 10 gm 12/29/22 10:00 12/29/22 09:25 Sodium Zirconium Cyclosilicate 10 Gm Powd.Pack PO 10 gm DAILY@1000 JERI Administration Radiology Results: ITS Impressions Chest X-Ray 12/29/22 06:13 IMPRESSION: 1. Airspace opacities at the lung bases, likely atelectasis. 2. Small left pleural effusion. 3. Left hilar lymphadenopathy, consistent with metastatic disease. Humerus X-Ray 12/29/22 06:16 IMPRESSION: 1. Polyarticular osteoarthritis. Abdomen/Pelvis CT 12/29/22 06:17 IMPRESSION: 1. Worsened metastatic renal cell carcinoma. Labs Labs: Laboratory Results - last 24 hr 12/28/22 12/28/22 12/29/22 23:36 23:36 01:27 WBC 18.8 H RBC 3.59 L Hgb 10.3 L Hct 33.5 L MCV 93.3 MCH 28.
--- NOTE | 2022-12-29 09:47 | PM.IMHP ---
H&P: HPI History of Present Illness Date/Time: 12/29/22 09:47 Chief Complaint: abnormal labs Narrative: This is an 87 year old male with history of DM, anemia, hypertension, CKD who presents from [facility] for evaluation of abnormal labs.? Nursing staff gave report that patient is lethargic with cough and congestion.? ? Patient reports pain all over from fall 2 weeks ago. ? He denies shortness of breath, abdominal pain, nausea or vomiting. HE has sandoval catheter in place.? ? Patient is poor historian and he is unsure of why he is at hospital. He is aware that he is at [facility]. Labs were drawn yesterday. It shows elevated wbc 20 with potassium 5.5 with Creatinine 2. with BUN 52. Review of Systems Review of Systems: - CONSTITUTIONAL: Denies weight loss, fever and chills. - HEENT: Denies changes in vision and hearing - RESPIRATORY: Denies SOB and cough. - CV: Denies palpitations and CP. - GI: Denies abdominal pain, nausea, vomiting and diarrhea. - : Denies dysuria and urinary frequency. - MSK: Denies myalgia and joint pain. - SKIN: Denies rash and pruritus. - NEUROLOGICAL: Denies headache and syncope. - PSYCHIATRIC: Denies recent changes in mood. Denies anxiety and depression. [facility] Past Medical History Medical History (Updated 12/29/22 @ 09:50 by David Hatch MD) Abdominal pain Cold intolerance Diabetes Difficulty swallowing Drowsiness Edema Excessive thirst Hypertension Joint pain Leg pain Metastatic renal cell carcinoma Vision changes Surgical History Surgical History History of cervical spinal surgery History of left nephrectomy Family History Family History Mother Cervical cancer Unknown Bone cancer Pancreatic cancer Grandparent Malignant neoplasm of prostate Social History Social History Smoking packs per day: 1 Smoking cigarettes per day: 20.0 Years smoked: 30 Smoking pack-years: 30.00 Smoking status: Former smoker Tobacco type: cigarettes Smoking end date: 09/14/88 Alcohol intake: current Drinks per week: 2 Substance use: never Substance use type: does not use Lack of Transportation: No Lack of Food: Never True Current Housing: I Have Housing Concerned About Future Housing: No Difficulty Paying Gas/Electric Bills: No Difficulty Paying for Meds: No Currently Unemployed: No Education: High School Diploma/GED Difficulty w/ Childcare or Family Care: No Living arrangements: with family Occupation/Education: retired Additional occupation/education comments: Retired from [employer] Gender identity (if verbalized by the patient): Male Spiritual care concerns: No Meds Home Medications and Allergies Home Medications Medication Instructions Recorded Confirmed Type cyanocobalamin (vitamin B-12) 500 mcg PO DAILY 11/10/19 12/29/22 History 1,000 mcg tablet glyctbrewwpk-dtz-pufxe acid-vit 1 tablet PO DAILY 11/10/19 12/29/22 History K-lycop 400 mcg-20 mcg-370 mcg tablet (Men's 50 Plus Multivitamin) oxycodone 5 mg capsule 5 mg PO Q4H PRN Pain (Scale Score 12/14/22 12/29/22 Rx 4-6) #60 caps acetaminophen 500 mg tablet 500 mg PO Q6H PRN Mild Pain (Scale 12/29/22 12/29/22 History Score 1-4) cholecalciferol (vitamin D3) 125 125 mcg PO DAILY 12/29/22 12/29/22 History mcg (5,000 unit) tablet glipizide 5 mg tablet 5 mg PO DAILY 12/29/22 12/29/22 History methocarbamol 500 mg tablet 500 mg PO TID 12/29/22 12/29/22 History pregabalin 50 mg capsule 50 mg PO BID 12/29/22 12/29/22 History Allergies Allergy/AdvReac Type Severity Reaction Status Date / Time Penicillins Allergy Mild Rash Verified 10/09/22 11:12 Cephalosporins AdvReac Unknown elevated Verified 10/09/22 11:12 LFT's egg AdvReac Unknown Verified 10/09/22 11:12 sitaglipti
[2022-12-29 09:52] LABS: Eosinophil Urine Rare % (None Seen)
[2022-12-29 09:53] LABS: Urine Eos QC 2nd Tech Confirmed
[2022-12-29 09:54] LABS: Creatinine Urine 111.7 mg/dL; Total Protein Urine Random 178 mg/dL; Ur Ttl Prot Creatinine Ratio 1.59 mg/mg (0-0.20); Urea Random Urine 717 MG/DL
--- NOTE | 2022-12-29 09:54 | PM.CNNEP ---
Assessment and Plan Assessment and plan (1) AILYN (acute kidney injury): Code(s): N17.9 - Acute kidney failure, unspecified Status: Acute Assessment and Plan: AILYN or is this progression of disease (?) check urine electrolytes, eosinophils, and CPK check renal ultrasound (CT imaging noted) trial of IVFs follow trend of repeat labs and UOP (2) Stage 3b chronic kidney disease: Code(s): N18.32 - Chronic kidney disease, stage 3b Status: Chronic Assessment and Plan: had been running ~ 1.5 -1.9mg/dl (prior to this admission) likely due to loss of nephron mass from previous nephrectomy along with diabetes, hypertension and age-related change (3) Hyperkalemia: Code(s): E87.5 - Hyperkalemia Status: Acute Assessment and Plan: presumably due to AILYN s/p medical therapy follow trend of K+ (4) Hypertension: Qualifiers: Hypertension type: primary hypertension Qualified Code(s): I10 - Essential (primary) hypertension Code(s): I10 - Essential (primary) hypertension Status: Chronic Assessment and Plan: reasonable control at this time no medications needed follow trend of hemodynamics (5) Metastatic renal cell carcinoma: Code(s): C64.9 - Malignant neoplasm of unspecified kidney, except renal pelvis Status: Chronic Assessment and Plan: follows with Dr. Saldana evidence of disease progression by recent imaging (6) Anemia: Code(s): D64.9 - Anemia, unspecified Status: Chronic Assessment and Plan: likely due to AILYN, CKD, acute illness, and cancer follow trend of H/H (7) Diabetes: Qualifiers: Diabetes mellitus complication status: without complication Diabetes mellitus rail walker insulin use: without [facility] use Diabetes mellitus type: type 2 Qualified Code(s): E11.9 - Type 2 diabetes mellitus without complications Code(s): E11.9 - Type 2 diabetes mellitus without complications Status: Chronic Assessment and Plan: follow accuchecks glycemic control per hospitalists I will continue to follow the patient with you while he remains hospitalized and make further recommendations during his hospital course Thank you for allowing me to participate in care this patient. History of Present Illness Reason for Consult Consult date: 12/29/22 Reason for consult: acute renal failure (on chronic kidney disease) Chief Complaint Chief complaint: AILYN, Hyperglycemia History of Present Illness Narrative: A great deal of the information I have obtained is from review of the electronic medical record as well as discussion with the physician/nurses involved in the patient's care as the patient is having some difficulty relating events that led to his subsequent admission to the hospital. The patient is an 87-year-old male with a past medical history as outlined below who presented to [facility] Room for further evaluation of abnormal labs from his nursing facility. The patient apparently is having nonspecific pain all over his body secondary to a fall 2 weeks ago. He gave no specific complaints with regard to shortness of breath, abdominal pain, nausea, or vomiting. By report, he apparently was somewhat more lethargic in association with cough and congestion prior to his transfer to the ER. He apparently had labs drawn yesterday that showed an elevated white blood cell count in association with mild hyperkalemia and elevated BUN and creatinine above his baseline. He was subsequently transferred to [facility] ER for further assessment. Workup and evaluation emergency room demonstrated the patient be hemodynamically stable and in no acute distress. Repeat labs confirmed his worsening renal dysfunction in association with mild hyperkalemia. His urinalysis was suggestive of urinary tract infection although he does have a chronic Quevedo cathete
[2022-12-29 10:02] LABS: Sodium Urine Random 47 meq/L
[2022-12-29 10:03] LABS: Creatine Kinase 536 U/L (55-170)
[2022-12-29] MEDS: oxyCODONE HCL (*CRX) 5 MG TAB IR PO ×2 (10:14→20:15)
[2022-12-29] MEDS: PREGABALIN (*CRX) 50 MG CAPSULE PO ×2 (10:14→17:54)
[2022-12-29] MEDS: CHOLECALCIFEROL 1,000 UNITS TABLET 5000 UNITS PO (10:14)
[2022-12-29] MEDS: CYANOCOBALAMIN 500 MCG TABLET PO (10:14)
[2022-12-29] MEDS: methocarbamoL 500 MG TABLET PO ×3 (10:14→17:54)
[2022-12-29] MEDS: THERAPEUTIC MULTIVITAMINS/MINERALS TAB (*BKC) 1 TABLET PO (10:14)
[2022-12-29 11:57] LABS: Glucose Point of Care 192 mg/dl (65-105)
--- NOTE | 2022-12-29 12:29 | ECG_ITS ---
Measurements Intervals [place] Rate: 92 P: 48 MO: 185 QRS: 35 QRSD: 89 T: 42 QT: 314 QTc: 390 Interpretive Statements SINUS RHYTHM ST ELEVATION IN THE INFERIOR LEADS, CONSIDER ACUTE INFERIOR INJURY [MARKED ST ELEVATION W/O NORMALLY INFLECTED T WAVE IN II/aVF] COMPARED TO ECG 12/28/2022 23:31:15 NO SIGNIFICANT CHANGES Electronically Signed On 12-29-2022 14:14:14 CDT by Elidia Hurd M.D.
--- NOTE | 2022-12-29 12:57 | PDONCCN ---
HPI - Date of Consult Date/Time: 12/29/22 12:57 Requesting Physician: Tanika Johnson MD Primary Care Provider: Samson Azar MD - Consult Narrative Reason for consult: Metastatic renal cell carcinoma Narrative: Mario Forte is a 87 year old male with history of metastatic renal cell carcinoma initially diagnosed as early stage status post nephrectomy in 2006 with subsequent relapse with mediastinal lymphadenopathy and bone metastasis in 2011. Patient had SBRT treatment to the cervical vertebral body in July 2019. He has been taking Lenvima 14 mg daily for long time but discontinued in January 2022 at the time of right cheek squamous cell carcinoma resection. He underwent superficial parotidectomy and right selective neck dissection. He was seen in the office last month and was still quite weak and recovering from the surgery. Plan was to start Lenvima after the repeat imaging studies. He was brought back into the hospital with abnormal lab finding with elevated creatinine and BUN. He is also dealing with bilateral heel vasculitis/infection. He is currently at [facility]. Labs showed WBC count of 19,000 with hemoglobin of 10.1 and platelet of [id number]. Creatinine was elevated at 2.4 with BUN of 56. Patient had CT abdomen and pelvis done that showed worsening of metastatic renal cell carcinoma with bilateral hilar and mediastinal lymphadenopathy and 1.6 cm mass in the right adrenal gland increased from 10 mm previously. There was multiple masses in the right kidney. There was a lytic lesion of L5 and sacrum on the left. There were 2 6 mm masses in the right retroperitoneum. Review of Systems - Review of Systems All systems reviewed & are unremarkable except as noted in HPI and bel - Neurologic Reports weakness, Denies syncope, Denies focal weakness [facility] Medical History: Medical History (Last Updated 12/29/22 @ 11:17 by Phil Cramer MD) Abdominal pain Cold intolerance Diabetes Difficulty swallowing Drowsiness Edema Excessive thirst Hypertension Joint pain Leg pain Metastatic renal cell carcinoma Vision changes Surgical History: Surgical History (Last Reviewed 12/29/22 @ 01:53 by Marie Mayorga MD) History of cervical spinal surgery History of left nephrectomy Family History: Family History (Last Reviewed 10/09/22 @ 11:14 by Prabhakar Ellis MD) Mother Cervical cancer Unknown Bone cancer Pancreatic cancer Grandparent Malignant neoplasm of prostate - Social History Social History: Social History (Last Reviewed 12/29/22 @ 01:53 by Marie Mayorga MD) Gender Identity: Gender identity (if verbalized by the patient): Male Alcohol Use: Alcohol intake: current Drinks per week: 2 Substance Use: Substance use: never Substance use type: does not use Others: Spiritual care concerns: No Living Arrangements: Living arrangements: with family Oppucation/Education: Occupation/Education: retired Smoking Status: Smoking status: Former smoker Tobacco type: cigarettes Smoking end date: 09/14/88 Smoking Pack-years: Smoking packs per day: 1 Smoking cigarettes per day: 20.0 Years smoked: 30 Smoking pack-years: 30.00 Social Determinants of Health: Has the Lack of Transportation Kept You From Medical Appointments or From Getting Medications?: No Within the Past 12 Months, Were You Worried Whether Your Food Would Run Out Before You Got Money to Buy More?: Never True What is Your Housing Situation Today?: I Have Housing Are You Worried That in the Next 2 Months, You May Not Have Your Own Housing to Live In?: No Do You Have Trouble Paying Your Heating Or Electricity Bill?: No Do You Have Trouble Paying For Medicines?: No Are You Currently Unemployed and Looking for Work?: No Highest Level of Education Completed: High School Diploma/GED Do You Have Tro
[2022-12-29 13:18] LABS: Troponin I 0.123 ng/mL (0.000-0.034)
--- NOTE | 2022-12-29 14:27 | PM.CNCAR ---
Assessment and Plan Assessment and plan (1) Abnormal ECG: Code(s): R94.31 - Abnormal electrocardiogram [ECG] [EKG] Status: Acute (2) Elevated troponin: Code(s): R77.8 - Other specified abnormalities of plasma proteins Status: Acute Plan EKG done on arrival to [place] ER 12/28 showed sinus rhythm, ST elevation in the inferior leads concerning for possible inferior injury. Compared to EKG from 2019, ST elevations in inferior leads noted at that time, however now the ST elevations appear more pronounced. Repeat EKG obtained today 12/29 is unchanged compared to yesterday's 12/28. Initial troponin of 0.123. In the setting of hyperkalemia, AILYN on CKD, rhabdo? (CK of 536). Patient is chest pain free. At this time, recommend medical management with ASA, statin. Obtain TTE. Trend troponins until peak. Given no chest pain or other anginal symptoms and no dynamic EKG changes, no plans for cardiac catheterization at this time. Recommendations/plan discussed with Hospitalist, Dr. Hatch. History of Present Illness History of Present Illness Consult date/time: 12/29/22 14:27 Requesting physician: David Hatch MD Consult reason: Other (Abnormal ECG) Reason For Visit: AILYN, Hyperglycemia Narrative: We are consulted for abnormal ECG. This is an 87-year-old male with history of diabetes, anemia, hypertension, CKD who presented from [facility] for evaluation of abnormal labs. Patient is a very poor historian, and is unable to provide much details, therefore, history obtained from patient's chart along from his medical team. Per reports from [facility], patient was lethargic with cough and congestion. Patient reported pain all over from fall 2 weeks ago. Labs showed leukocytosis, AILYN on CKD, therefore, patient sent to [place]. CT shows worsening metastatic renal cell carcinoma. Labs show WBC of 19, K 6.0, SCr 2.4, CK 536. EKG done on arrival to [place] ER 12/28 showed sinus rhythm, ST elevation in the inferior leads concerning for possible inferior injury. Compared to EKG from 2019, ST elevations in inferior leads noted at that time, however now the ST elevations appear more pronounced. Repeat EKG obtained today 12/29 is unchanged compared to yesterday's 12/28. Patient denies chest pain. He is able to tell me his date of , but cannot tell me where he's at. When I accidentally bumped into his left knee, he stated Ow. When I asked patient what brought him to the hospital, he says the ambulance. When I asked patient what he was feeling that made him come to the ER, he states his co-workers turned him in. Patient is denying chest pain, shortness of breath at this time. Review of Systems Review of Systems: 8 point ROS obtained. Negative, unless stated in HPI. [facility] Past Medical History Medical History (Updated 12/29/22 @ 14:37 by Elidia Hurd MD) Abdominal pain Cold intolerance Diabetes Difficulty swallowing Drowsiness Edema Excessive thirst Hypertension Joint pain Leg pain Metastatic renal cell carcinoma Vision changes Surgical History Surgical History (Updated 12/29/22 @ 13:03 by Kong Saldana MD) History of cervical spinal surgery History of left nephrectomy Family History Family History Mother Cervical cancer Unknown Bone cancer Pancreatic cancer Grandparent Malignant neoplasm of prostate Social History Social History Smoking packs per day: 1 Smoking cigarettes per day: 20.0 Years smoked: 30 Smoking pack-years: 30.00 Smoking status: Former smoker Tobacco type: cigarettes Smoking end date: 09/14/88 Alcohol intake: current Drinks per week: 2 Substance use: never Substance use type: does not use Lack of Transportation: No Lack of Food: Never True Current Housing: I Have Housing Concerned About Future Housing: No Difficulty Paying Gas/[place]
[2022-12-29] MEDS: ASPIRIN 81 MG CHEWABLE TABLET 324 MG PO (14:39)
[2022-12-29 16:28] LABS: Troponin I 0.125 ng/mL (0.000-0.034)
[2022-12-29] MEDS: PERFLUTREN LIPID MICROSPHERES 1.5 ML VIAL DILUTED TO 10 ML TOTAL VOLUME IV PUSH (17:05)
--- NOTE | 2022-12-29 17:06 | IVDEFINITY ---
Prior to administration of IV Definity the patient was educated on the risks and benefits of the imaging enhancing agent including potential adverse side effects. The patient verbalized understanding. Allergies were verified. No exclusion criteria were identified and at least one of the following inclusion criteria were met: 1) physician request, 2) patient technically difficult to image (per the [place] [employer]ocardi[employer] guidelines of two or more segments not discernable within the apical view), or 3) questionable left ventricular function. ?
[2022-12-29 19:24] LABS: Troponin I 0.131 ng/mL (0.000-0.034)
[2022-12-29] MEDS: ATORVASTATIN 40 MG TABLET 80 MG PO (20:15)
[2022-12-29] MEDS: HEPARIN SODIUM 5,000 UNITS/ML VIAL 5000 UNITS SUB-Q (20:15)
[2022-12-29] MEDS: SODIUM CHLORIDE 0.9% IV 1,000 ML 75 ML IV CONT (21:25)
[2022-12-30] VITALS (12 sets, daily range): BP systolic 119–143; BP diastolic 47–56; PULSE 75–94; RESP 18–24; TEMP 36.4–37.2; O2SAT 95–100
[2022-12-30 05:31] LABS: Albumin Level 2.9 g/dL (3.5-5.1); Anion Gap 4 mmol/L (8-16); Blood Urea Nitrogen 63 mg/dL (9-20); Carbon Dioxide 26 mmol/L (22-30); Chloride 108 mmol/L (98-107); Creatine Kinase 243 U/L (55-170); Estimated CRCL calculation 19 ml/min; Estimated Glomerular Filt Rate 26; Glucose 50 mg/dL (65-110); Sodium 138 mmol/L (137-145)
[2022-12-30 05:34] LABS: Basophils Percent Auto 0.2 % (0.2-1.2); Eosinophils Absolute Auto 0.1 K/mm3 (0-0.3); Eosinophils Percent Auto 1.1 % (0-4.4); Hematocrit 29.9 % (42.0-52.0); Hemoglobin 9.1 g/dL (14.0-18.0); Immature Granulocyte Absolute 0.08 K/mm3 (0.00-0.031); Immature Granulocyte Percent A 0.6 % (0-0.5); Lymphocytes Absolute Auto 1.05 K/mm3 (0.9-3.2); Lymphocytes Percent Auto 8.4 % (18.3-44.2); Mean Corpuscular HGB Conc 30.4 g/dl (32-36); Mean Corpuscular Hemoglobin 28.8 pg (26-34); Mean Corpuscular Volume 94.6 fl (80-100); Mean Platelet Volume 11.6 fl (7.4-10.4); Monocytes Absolute Auto 0.9 K/mm3 (0.1-0.6); Monocytes Percent Auto 7.2 % (2.6-8.5); Neutrophils Absolute Auto 10.2 K/mm3 (1.3-6.7); Neutrophils Percent Auto 82.5 % (45.5-73.1); Platelet Count Result 189 k/mm3 (150-375); Red Blood Count 3.16 M/mm3 (4.6-6.20); Red Cell Distribution Width 14.2 % (11.5-14.5); White Blood Count 12.4 K/mm3 (4.5-10.0)
[2022-12-30] MEDS: oxyCODONE HCL (*CRX) 5 MG TAB IR PO ×2 (05:47→13:41)
[2022-12-30] MEDS: metroNIDAZOLE 500 MG/ISO 100ML 500 MG/100 ML BAG 100 MG IVPB ×2 (05:52→13:32)
[2022-12-30 05:56] LABS: Glucose Point of Care 73 mg/dl (65-105)
[2022-12-30 07:17] LABS: Glucose Point of Care 66 mg/dl (65-105)
[2022-12-30 07:17] LABS: Glucose Point of Care 78 mg/dl (65-105)
[2022-12-30 08:23] LABS: Glucose Point of Care 86 mg/dl (65-105)
[2022-12-30] MEDS: PREGABALIN (*CRX) 50 MG CAPSULE PO ×2 (08:39→17:28)
[2022-12-30] MEDS: ASPIRIN 81 MG ENTERIC TABLET PO (08:39)
[2022-12-30] MEDS: CHOLECALCIFEROL 1,000 UNITS TABLET 5000 UNITS PO (08:40)
[2022-12-30] MEDS: THERAPEUTIC MULTIVITAMINS/MINERALS TAB (*BKC) 1 TABLET PO (08:40)
[2022-12-30] MEDS: HEPARIN SODIUM 5,000 UNITS/ML VIAL 5000 UNITS SUB-Q (08:40)
[2022-12-30] MEDS: SODIUM ZIRCONIUM CYCLOSILICATE 10 GM POWD.PACK PO (08:40)
[2022-12-30] MEDS: methocarbamoL 500 MG TABLET PO ×3 (08:40→17:29)
[2022-12-30] MEDS: CYANOCOBALAMIN 500 MCG TABLET PO (08:40)
--- NOTE | 2022-12-30 09:17 | PM.PNCARD ---
Progress Note: A&P Assessment and Plan (1) Abnormal ECG: Code(s): R94.31 - Abnormal electrocardiogram [ECG] [EKG] Status: Acute (2) Elevated troponin: Code(s): R77.8 - Other specified abnormalities of plasma proteins Status: Acute Plan EKG done on arrival to [place] [facility] 12/28 showed sinus rhythm, ST elevation in the inferior leads concerning for possible inferior injury. Compared to EKG from 2019, ST elevations in inferior leads noted at that time, however now the ST elevations appear more pronounced. Repeat EKG obtained today 12/29 is unchanged compared to yesterday's 12/28. Initial troponin of 0.123 with peak troponin of 0.131. In the setting of hyperkalemia, AILYN on CKD, rhabdo? (CK of 536). Patient is chest pain free and has been chest pain free since admission. At this time, recommend medical management with ASA, statin. Obtain TTE. Given no chest pain or other anginal symptoms and no dynamic EKG changes, no plans for cardiac catheterization at this time. Subjective Date/time seen: 12/30/22 09:17 Interval history: Reason for visit: Abnormal ECG, elevated troponin level HPI: We are consulted for abnormal ECG. This is an 87-year-old male with history of diabetes, anemia, hypertension, CKD who presented from [facility] for evaluation of abnormal labs. Patient is a very poor historian, and is unable to provide much details, therefore, history obtained from patient's chart along from his medical team. Per reports from [facility], patient was lethargic with cough and congestion. Patient reported pain all over from fall 2 weeks ago. Labs showed leukocytosis, AILYN on CKD, therefore, patient sent to [place]. CT shows worsening metastatic renal cell carcinoma. Labs show WBC of 19, K 6.0, SCr 2.4, CK 536. EKG done on arrival to [place] ER 12/28 showed sinus rhythm, ST elevation in the inferior leads concerning for possible inferior injury. Compared to EKG from 2019, ST elevations in inferior leads noted at that time, however now the ST elevations appear more pronounced. Repeat EKG obtained today 12/29 is unchanged compared to yesterday's 12/28. Patient denies chest pain. He is able to tell me his date of , but cannot tell me where he's at. When I accidentally bumped into his left knee, he stated Ow. When I asked patient what brought him to the hospital, he says the ambulance. When I asked patient what he was feeling that made him come to the ER, he states his co-workers turned him in. Patient is denying chest pain, shortness of breath at this time. Date of service 12/30: No acute events overnight. Patient reports pain in his feet. States his breakfast tastes just okay. No chest pain or shortness of breath. Review of Systems Review of Systems: 8 point ROS obtained. Negative, unless stated in HPI. Exam Const: General: comfortable and no acute distress HENMT: Mouth: Yes dry mucous membranes Eyes: General: appearance normal, both eyes and all related structures Sclera: sclerae normal Neck: Neck: supple Resp: Effort & Inspection: normal respiratory effort Auscultation: diminished lung sounds Cardio: Rate: regular rate Rhythm: regular rhythm Heart sounds: no murmurs Neuro: Speech: normal speech Extrem: General: normal to inspection Psych: Affect: normal affect Objective Data Vital Signs Vital Signs: Vital Signs - 24 hr 12/29/22 12:17 12/29/22 12:00 12/29/22 10:00 Temperature 36.9 C Pulse Rate 92 103 H Respiratory Rate 22 H Blood Pressure 109/49 L Pulse Oximetry 96 Oxygen Delivery Room Air Oxygen Flow Rate 12/29/22 12:00 12/29/22 14:00 12/29/22 14:47 Temperature Pulse Rate 95 92 Respiratory Rate Blood Pressure Pulse Oximetry 92 Oxygen Delivery Room Air Oxygen Flow Rate 12/29/22 16:00 12/29/22 16:00 12/29/22 16:26 Temperature 37.2 C Pulse Rate 85 91 Respiratory Rate 21 H Blood Pressure 102/49 L Pulse Oximetry 97 Oxygen Delive
--- NOTE | 2022-12-30 12:34 | PCSTNOTE ---
Please refer to the Bedside Swallow Evaluation in the EMR. Please note, silent aspiration cannot be ruled out at bedside.
--- NOTE | 2022-12-30 13:04 | P.PNNP_ITS ---
Progress Note: A&P Assessment and Plan (1) AILYN (acute kidney injury): Code(s): N17.9 - Acute kidney failure, unspecified Status: Acute Assessment and Plan: * AILYN or is this progression of disease (?) * tend to favor the latter.... * evaluation to date: * renal ultrasound with remain right kidney with renal cell carcinoma * urine electrolytes are prerenal * rare urine eosinophils noted * moderate proteinuria (~ 1600mg) * ongoing trial IVFs at this time * follow trend of repeat labs and UOP (2) Stage 3b chronic kidney disease: Code(s): N18.32 - Chronic kidney disease, stage 3b Status: Chronic Assessment and Plan: * had been running ~ 1.5 -1.9mg/dl (prior to this admission) * likely due to loss of nephron mass from previous nephrectomy along with diabetes, hypertension and age-related change * there may be a component of CKD progression (given evidence to date) (3) Hyperkalemia: Code(s): E87.5 - Hyperkalemia Status: Acute Assessment and Plan: * presumably due to worsening renal function * s/p medical therapy * follow trend of K+ (4) Hypertension: Qualifiers: Hypertension type: primary hypertension Qualified Code(s): I10 - Essential (primary) hypertension Code(s): I10 - Essential (primary) hypertension Status: Chronic Assessment and Plan: * reasonable control at this time * no medications needed * follow trend of hemodynamics (5) Metastatic renal cell carcinoma: Code(s): C64.9 - Malignant neoplasm of unspecified kidney, except renal pelvis Status: Chronic Assessment and Plan: * follows with Dr. Saldana * evidence of significant disease progression by recent imaging studies as noted * poor prognosis (6) Anemia: Code(s): D64.9 - Anemia, unspecified Status: Chronic Assessment and Plan: * likely due to AILYN, CKD, acute illness, and cancer * follow trend of H/H (7) Diabetes: Qualifiers: Diabetes mellitus type: type 2 Diabetes mellitus package line relief operator insulin use: without package line relief operator use Diabetes mellitus complication status: without complication Qualified Code(s): E11.9 - Type 2 diabetes mellitus without complications Code(s): E11.9 - Type 2 diabetes mellitus without complications Status: Chronic Assessment and Plan: * follow accuchecks * glycemic control per hospitalists Will continue to follow. Subjective Date/time seen: 12/30/22 13:04 Sitting up in bed in no apparent distress; renal function remains unchanged although potassium seems to be doing better; making urine as well; no apparent distress noted. Exam Narrative: General: elderly and frail male in NAD Heart: normal S1 and S2; no rub Lungs: decreased at the bases Abdomen: soft, nontender, nondistended, positive bowel sounds Extremities: no cyanosis or clubbing; no edema Skin: warm and dry Objective Data Vital Signs Vital Signs: Vital Signs Temp Pulse Resp BP Pulse Ox O2 Del Method O2 Flow Rate 12/30/22 12:00 98.5 F 89 24 H 143/55 H 97 12/30/22 10:00 84 12/30/22 08:00 84 12/30/22 08:00 Room Air 12/30/22 08:00 97.8 F 85 18 119/56 L 100 12/30/22 08:00 97.8 F 85 18 80/42 L 100 12/30/22 08:00 98 Nasal Ca
--- NOTE | 2022-12-30 13:04 | PM.PNNEP ---
Progress Note: A&P Assessment and Plan (1) AILYN (acute kidney injury): Code(s): N17.9 - Acute kidney failure, unspecified Status: Acute Assessment and Plan: AILYN or is this progression of disease (?) tend to favor the latter.... evaluation to date: renal ultrasound with remain right kidney with renal cell carcinoma urine electrolytes are prerenal rare urine eosinophils noted moderate proteinuria (~ 1600mg) ongoing trial IVFs at this time follow trend of repeat labs and UOP (2) Stage 3b chronic kidney disease: Code(s): N18.32 - Chronic kidney disease, stage 3b Status: Chronic Assessment and Plan: had been running ~ 1.5 -1.9mg/dl (prior to this admission) likely due to loss of nephron mass from previous nephrectomy along with diabetes, hypertension and age-related change there may be a component of CKD progression (given evidence to date) (3) Hyperkalemia: Code(s): E87.5 - Hyperkalemia Status: Acute Assessment and Plan: presumably due to worsening renal function s/p medical therapy follow trend of K+ (4) Hypertension: Qualifiers: Hypertension type: primary hypertension Qualified Code(s): I10 - Essential (primary) hypertension Code(s): I10 - Essential (primary) hypertension Status: Chronic Assessment and Plan: reasonable control at this time no medications needed follow trend of hemodynamics (5) Metastatic renal cell carcinoma: Code(s): C64.9 - Malignant neoplasm of unspecified kidney, except renal pelvis Status: Chronic Assessment and Plan: follows with Dr. Saldana evidence of significant disease progression by recent imaging studies as noted poor prognosis (6) Anemia: Code(s): D64.9 - Anemia, unspecified Status: Chronic Assessment and Plan: likely due to AILYN, CKD, acute illness, and cancer follow trend of H/H (7) Diabetes: Qualifiers: Diabetes mellitus type: type 2 Diabetes mellitus assisted insulin use: without assisted use Diabetes mellitus complication status: without complication Qualified Code(s): E11.9 - Type 2 diabetes mellitus without complications Code(s): E11.9 - Type 2 diabetes mellitus without complications Status: Chronic Assessment and Plan: follow accuchecks glycemic control per hospitalists Will continue to follow. Subjective Date/time seen: 12/30/22 13:04 Sitting up in bed in no apparent distress; renal function remains unchanged although potassium seems to be doing better; making urine as well; no apparent distress noted. Exam Narrative: General: elderly and frail male in NAD Heart: normal S1 and S2; no rub Lungs: decreased at the bases Abdomen: soft, nontender, nondistended, positive bowel sounds Extremities: no cyanosis or clubbing; no edema Skin: warm and dry Objective Data Vital Signs Vital Signs: Vital Signs Temp Pulse Resp BP Pulse Ox O2 Del Method O2 Flow Rate 12/30/22 12:00 98.5 F 89 24 H 143/55 H 97 12/30/22 10:00 84 12/30/22 08:00 84 12/30/22 08:00 Room Air 12/30/22 08:00 97.8 F 85 18 119/56 L 100 12/30/22 08:00 97.8 F 85 18 80/42 L 100 12/30/22 08:00 98 Nasal Cannula 2 12/30/22 06:00 83 12/30/22 04:00 79 12/30/22 02:57 Room Air 12/30/22 02:30 98.1 F 81 22 H 125/47 L 97 12/30/22 02:00 77 12/30/22 00:00 75 12/30/22 00:00 Room Air 12/29/22 23:40 98.6 F 83 22 H 132/49 L 96 12/29/22 22:00 77 12/29/22 20:00 81 12/29/22 20:00 97.4 F L 84 20 103/43 L 89 L 12/29/22 20:00 Room Air 12/29/22 18:00 91 12/29/22 16:26 98.9 F 91 21 H 102/49 L 97 12/29/22 16:00 85 12/29/22 16:00 Room Air 12/29/22 14:47 92 Room Air Intake/Output Intake/Output: Intake & Output
--- NOTE | 2022-12-30 13:42 | PCSTNOTE ---
Attempted to complete MBS; however, radiology transport stated pt refused. Will try again tomorrow.
--- NOTE | 2022-12-30 14:18 | PM.IMPN ---
Progress Note: A&P Assessment and Plan (1) AILYN (acute kidney injury): Code(s): N17.9 - Acute kidney failure, unspecified Status: Acute (2) Hyperkalemia: Code(s): E87.5 - Hyperkalemia Status: Acute (3) Anemia: Code(s): D64.9 - Anemia, unspecified Status: Chronic (4) Diabetes: Qualifiers: Diabetes mellitus complication status: without complication Diabetes mellitus fpc insulin use: without fpc use Diabetes mellitus type: type 2 Qualified Code(s): E11.9 - Type 2 diabetes mellitus without complications Code(s): E11.9 - Type 2 diabetes mellitus without complications Status: Chronic (5) Hypertension: Qualifiers: Hypertension type: primary hypertension Qualified Code(s): I10 - Essential (primary) hypertension Code(s): I10 - Essential (primary) hypertension Status: Chronic (6) History of renal cell cancer: Code(s): Z85.528 - Personal history of other malignant neoplasm of kidney Status: Acute (7) Fall: Code(s): W19.XXXA - Unspecified fall, initial encounter Status: Acute Plan Fall 2 weeks ago AILYN creatinine of 2.4 check CK level with recent fall. On CKD stage 3 baseline creatinine around 1.5. Continue IV hydration renal consultation. urine lytes. s/p nephrectomy for renal cell carcinoma Hyperkalemia with potassium 6 appropriately treated in the ER. Lokelma given earlier today. Repeat was 5.7 will repeat Lokelma again. hx of hyperkalemia in the past noted. Leukocytosis 18,000 on admission unclear etiology. bilaterl heel discoloration s/o DTI noted. no other s/s of infection. cxr with airspace opacities s/o atelectasis. ct abdomen showed no signs of infection. though he did not report patient has been having cough and cognestion. will treat as possilbe pneumonia with cxr findigns of airspace opacities. on levaquin and flagyl. flagyl added for anaerobic coverage. allergic to penicillin and cephalosporins. Bilateral heel DTI: wound to see. protective covering. Mild anemia no signs of bleeding Hematuria noted on UA line type 2 diabetes mellitus on glipizide. CT abdomen pelvis with worsening metastatic renal cell carcinoma. History of renal cell carcinoma status post nephrectomy 2007 distant metastasis follows with Dr. Saldana Status post cervical spine surgery DVT proph: heparin sq Code status: full code Spoke with film color tester who felt the patient's creatinine is probably at new baseline for him. Potassium is improved. Cervical spine CT shows worsened distribution increased intensity in the upper cervical spine consistent with metastatic disease. CT of the chest showed worsened chest lymphadenopathy consistent with metastatic renal cell. Oncology discussed comfort care versus starting then Lenvima. Family decided to continue with Lenvima. no evidence of osteomyelitis x-ray. Continue IV abx. Discussed with and she was updated about the imaging findings. She is requesting comfort measures for the patient. She will come in to talk with the patient about hospice. Code status discussed and she would like him to be DNR. arrived this afternoon. She has spoken with her and they both decided to proceed with hospice care. Hospice consult placed. Will start minced and moist diet. Stop lab draws. Stop abx. Back to alf tomorrow on hospice care. Subjective Date/time seen: 12/30/22 14:18 Interval history: 87yo male with DM, anemia, HTN, CKD and metastatic renal cell CA here for abnormal labs. Assuming care. Chart reviewed. Patient is feeling okay. He denies any shortness of breath but does have a nonproductive cough. No chest pain. He does feel his cough is better since being here. He is on antibiotics. Does complain of pain in his legs. Patient states that oncologist discussed comfort care with him. Patient states that he is ?ready?. He did not want to speak with hospice at this time however
[2022-12-30 16:43] LABS: Glucose Point of Care 73 mg/dl (65-105)
--- NOTE | 2022-12-30 17:11 | PCCCNOTE ---
CC received call from Bedside RN requesting hospice consult. CC met with patient and at bedside. At this time patient and would like a referral faxed to [facility]. CC confirmed with Dawna at [facility] that Karen goes to [facility] and they do. CC also called kaitlin with [facility] with referral.
[2022-12-31 06:24] LABS: Glucose Point of Care 65 mg/dl (65-105)
--- NOTE | 2023-01-03 06:55 | PM.DS ---
DS: Admitting Diagnosis Discharge Date 12/30/22 Admitting Diagnosis Abnormal labs DS: Discharge Diagnosis Discharge Diagnosis (1) AILYN (acute kidney injury): Code(s): N17.9 - Acute kidney failure, unspecified Status: Acute (2) Hyperkalemia: Code(s): E87.5 - Hyperkalemia Status: Acute (3) Anemia: Code(s): D64.9 - Anemia, unspecified Status: Chronic (4) Diabetes: Qualifiers: Diabetes mellitus complication status: without complication Diabetes mellitus long term acute care registered nurse insulin use: without senior living use Diabetes mellitus type: type 2 Qualified Code(s): E11.9 - Type 2 diabetes mellitus without complications Code(s): E11.9 - Type 2 diabetes mellitus without complications Status: Chronic (5) Hypertension: Qualifiers: Hypertension type: primary hypertension Qualified Code(s): I10 - Essential (primary) hypertension Code(s): I10 - Essential (primary) hypertension Status: Chronic (6) History of renal cell cancer: Code(s): Z85.528 - Personal history of other malignant neoplasm of kidney Status: Acute (7) Fall: Code(s): W19.XXXA - Unspecified fall, initial encounter Status: Acute DS: Summary Hospital Course Reason for hospitalization: 87yo male with DM, anemia, HTN, CKD and metastatic renal cell CA here for abnormal labs. Please see H&P for details. Hospital Course: Patient found with AILYN. he does have underlying CKD stage 3. He was treated with IV hydration. Also with hyperkalemia related to renal disease that was appropriately treated. Event Sales Manager was involved in his care. EKG was concerning for AMI but these findings have been noted in the past. Troponin were elevated to 0.131 but flat pattern and thus not thought to have had acute ID. Cardiology [facility] involved in his care. CT Abd/Pelvis showing worsening metastatic renal cell carcinoma. Please see report for details. Chest CT also showing worsening chest lymphadenopathy. MRI cervical spine showing worsening distribution of metastatic disease to C1, C2 and C3. Findings discussed with patient and . Options discussed including hospice. Oncology was involved in his care as well. Patient and family decided to proceed with hospice care. Patient was transferred to inpatient hospice care on 12/30/22 Status at Discharge Cognitive/behavioral status at discharge: stable Time Spent with Patient Time attestation: Total time spent providing and/or coordinating discharge services: 35 minutes Time spent: Greater than 30 minutes Exam Narrative: AF 98.5 143/55 89 24 97% ra Gen - NARD Chest -decreased breath sounds in the flanks. CV - RRR S1/S2. Abd - Soft, NT/ND, Positive BS Ext - No pedal edema but tender to touch. Bilateral lower extremities and waffle boots Psych - Nml mood and affect. Appears tired Skin - Warm and dry DS: Data Data Completed and Pending Labs on day of discharge: Preliminary micro results at discharge 12/29/22 01:27 Blood Culture - Preliminary Blood 12/29/22 01:27 Blood Culture - Preliminary Blood Discharge Plan Discharge Attending physician on discharge: Negro Álvarez Consulting providers: Phil Cramer; Kong Saldana; Elidia Hurd; Justen Jordan; Guevara Patel; Fausto Mcdonald; Italo Castro V.; David Hatch Discharging Clinician: Negro Álvarez Patient Disposition: Hospice [facility] Inpatient Activity: as tolerated Diet: as tolerated Date of admission: 12/30/22 09:51 Primary Care Provider: Samson Azar Admitting Provider: Tanika Johnson V. Attending physician on admission: Negro Álvarez Condition: Guarded Prognosis
[2023-01-04 17:09] LABS: Chloride Rand Ur 39 mmol/L (32-290); Chloride/Creatinine Rand Ur 34 (23-275); Creatinine Random Urine 116 mg/dL (20-320)
== END 2022-12-30 21:16 | disposition hospice, inpatient (51) | DRG 687 ==
LOC: ANHED 12-29 04:23 → ANHIMU 12-29 06:32
PROVIDERS: Internal Medicine; Internal Medicine Nephrology; Admitting Provider Internal Medicine; Emergency Provider General Practice; PCP Family Medicine; Visit Provider Internal Medicine
DX: C64.1 Malignant neoplasm of right kidney, except renal pelvis (principal); C79.51 Secondary malignant neoplasm of bone; N17.9 Acute kidney failure, unspecified; E87.5 Hyperkalemia; W19.XXXA Unspecified fall, initial encounter; L89.620 Pressure ulcer of left heel, unstageable; L89.616 Pressure-induced deep tissue damage of right heel; E11.22 Type 2 diabetes mellitus with diabetic chronic kidney disease; I12.9 Hypertensive chronic kidney disease with stage 1 through stage 4 chronic kidney disease, or unspecified chronic kidney disease; N18.32 Chronic kidney disease, stage 3b; D63.1 Anemia in chronic kidney disease; D63.0 Anemia in neoplastic disease; E11.65 Type 2 diabetes mellitus with hyperglycemia; Z90.5 Acquired absence of kidney; Z87.891 Personal history of nicotine dependence; Z85.828 Personal history of other malignant neoplasm of skin
CPT/HCPCS: 36415; 71045; 71250; 72141; 73060; 73650; 74176; 76775; 80048; 80053; 80069; 81001; 81050; 82436; 82550; 82570; 82948; 83605; 84156; 84300; 84484; 84540; 85025; 85610; 85730; 85999; 87040; 87081; 92610; 93005; 96361; 96366; 96367; 96375; 99285; A9270; C8929; G0378; J0612; J1644; J1815; J1956; J3370; J7030; J7040; Q9957

== ENCOUNTER 2022-12-30 21:18 | HOS | payer OTHER, MEDICARE, SELFPAY ==
[2022-12-30 21:58] VITALS: BMI 29.1
[2022-12-30 23:13] VITALS: PULSE 87; RESP 16
[2022-12-30] MEDS: HYDROmorphone HCL/PF (*CRX) 50 MG in SODIUM CHLORIDE 0.9% IV 95 ML IV CONT (23:13)
[2022-12-30 23:28] VITALS: BP 140/53; PULSE 91; RESP 20; TEMP 36.4; O2SAT 95
[2022-12-31 07:38] LABS: Glucose Point of Care 32 mg/dl (65-105)
[2022-12-31] MEDS: DEXTROSE 50% 25 GM/50 ML SYRINGE IV PUSH (07:57)
[2022-12-31] MEDS: ARTIFICIAL TEARS OPHTH SOLN 15 ML BOTTLE 1 DROP EACH EYE (08:01)
--- NOTE | 2022-12-31 12:45 | PM.IMHP ---
H&P: HPI History of Present Illness Date/Time: 12/31/22 12:45 Chief Complaint: Uncontrolled pain Narrative: 87 y/o male admitted 12/29 due to increased pain, decreased po intake, increased congestion, generalized weakness. He is a resident at [facility]. He was found to have elevated creatinine (2.4), anemia (9.1), and leukocytosis (12.4). He was treated with IV fluids and analgesics. There was no evidence for infection on imaging or cultures. On 12/30, due to severe, generalized pain since he fell 2 weeks ago, he opted for comfort care only. Since initiation of continuous hydromorphone, his pain has been adequately controlled. He did have a finger stick glucose of 32 earlier this AM (while receiving no oral or injectable hypoglycemic agents) that was addressed with IV D50. Review of Systems Review of Systems: ROS unobtainable: Yes unobtainable due to medical condition PMFSH Past Medical History Medical History Abdominal pain Cold intolerance Diabetes Difficulty swallowing Drowsiness Edema Excessive thirst Hypertension Joint pain Leg pain Metastatic renal cell carcinoma Vision changes Surgical History Surgical History History of cervical spinal surgery History of left nephrectomy Family History Family History Mother Cervical cancer Unknown Bone cancer Pancreatic cancer Grandparent Malignant neoplasm of prostate Social History Social History Social History: Code Status: DNR Smoking packs per day: 1 Smoking cigarettes per day: 20.0 Years smoked: 30 Smoking pack-years: 30.00 Smoking status: Former smoker Tobacco type: cigarettes Smoking end date: 09/14/88 Alcohol intake: current Drinks per week: 2 Substance use: never Substance use type: does not use Lack of Transportation: No Lack of Food: Never True Current Housing: I Have Housing Concerned About Future Housing: No Difficulty Paying Gas/Electric Bills: No Difficulty Paying for Meds: No Currently Unemployed: No Education: High School Diploma/GED Difficulty w/ Childcare or Family Care: No Living arrangements: with family Occupation/Education: retired Additional occupation/education comments: Retired from [employer] Gender identity (if verbalized by the patient): Male Spiritual care concerns: No Meds Home Medications and Allergies Home Medications Medication Instructions Recorded Confirmed Type cyanocobalamin (vitamin B-12) 500 mcg PO DAILY 11/10/19 12/29/22 History 1,000 mcg tablet uxtbphgqnpyz-jvw-ipgwz acid-vit 1 tablet PO DAILY 11/10/19 12/29/22 History K-lycop 400 mcg-20 mcg-370 mcg tablet (Men's 50 Plus Multivitamin) oxycodone 5 mg capsule 5 mg PO Q4H PRN Pain (Scale Score 12/14/22 12/29/22 Rx 4-6) #60 caps acetaminophen 500 mg tablet 500 mg PO Q6H PRN Mild Pain (Scale 12/29/22 12/29/22 History Score 1-4) cholecalciferol (vitamin D3) 125 125 mcg PO DAILY 12/29/22 12/29/22 History mcg (5,000 unit) tablet glipizide 5 mg tablet 5 mg PO DAILY 12/29/22 12/29/22 History methocarbamol 500 mg tablet 500 mg PO TID 12/29/22 12/29/22 History pregabalin 50 mg capsule 50 mg PO BID 12/29/22 12/29/22 History Allergies Allergy/AdvReac Type Severity Reaction Status Date / Time Penicillins Allergy Mild Rash Verified 10/09/22 11:12 azithromycin Allergy Unknown Verified 12/30/22 08:09 Cephalosporins AdvReac Unknown elevated Verified 10/09/22 11:12 LFT's egg AdvReac Unknown Verified 10/09/22 11:12 sitagliptin AdvReac rash Verified 10/09/22 11:12 Vital Signs Vital Signs - 24 hr 12/30/22 21:42 12/30/22 23:13 12/30/22 23:28 Temperature 97.6 F Pulse Rate 87 91 Respiratory Rate 16 20 Blood Pressure 140/53 L Pulse Oximetry 9
--- NOTE | 2022-12-31 17:56 | PM.DDS ---
Discharge Summary Date and Time Date of : 12/31/22 Time of : 15:55 Provider Pronounced By: Deanna Maldonado Probable Cause of Probable Cause of : Metastatic Renal Cell Carcinoma Summary Hospital Course: Admitted to inpatient hospice service due to uncontrolled pain. Medications were titrated to comfort. Mr. Forte peacefully. Additional Data Confirmation of as documented by pronouncing clinician: Pupillary Reflex, Palpable Pulses, Response to Stimuli, Heart Tones and Breath Sounds Name of Provider Notified: Dr. Wallace Time Provider Notified: 16:20 Provider Requests Autopsy: No Family Requests Autopsy: No [place] Line Attendant Notified: Yes Date Mid-April Transplant Notified of : 12/31/22 Time Mid-April Transplant Notified of : 16:09
== END 2022-12-31 15:55 | disposition expired | DRG 951 ==
LOC: ANHIMU 21:19
PROVIDERS: Admitting Provider Internal Medicine; PCP Family Medicine; Visit Provider Internal Medicine
DX: Z51.5 Encounter for palliative care (principal); C64.9 Malignant neoplasm of unspecified kidney, except renal pelvis; I12.9 Hypertensive chronic kidney disease with stage 1 through stage 4 chronic kidney disease, or unspecified chronic kidney disease; E11.22 Type 2 diabetes mellitus with diabetic chronic kidney disease; N18.32 Chronic kidney disease, stage 3b; Z66 Do not resuscitate; Z87.891 Personal history of nicotine dependence
CPT/HCPCS: 82948; A9270; J1170